=== PATIENT | male | born 1955 | race Caucasian/White ===

== ENCOUNTER → 2016-05-06 | Outpatient (CLI) | payer OTHER | LOC: FIMAGING 15:29 | PROVIDERS: ATTEND Family Medicine | DX: M99.73 Connective tissue and disc stenosis of intervertebral foramina of lumbar region (principal); M51.86 Other intervertebral disc disorders, lumbar region; Z98.1 Arthrodesis status ==

== ENCOUNTER → 2016-07-01 | Outpatient (CLI) | payer OTHER | LOC: FIMAGING 12:02 | PROVIDERS: ATTEND Physician Assistant Surgical | DX: M41.9 Scoliosis, unspecified (principal) ==

== ENCOUNTER → 2016-08-27 | Outpatient (CLI) | payer OTHER | LOC: FIMAGING 16:03 | PROVIDERS: ATTEND Family Medicine | DX: I82.401 Acute embolism and thrombosis of unspecified deep veins of right lower extremity (principal) ==

== ENCOUNTER → 2016-11-24 | Outpatient (CLI) | payer OTHER | LOC: FIMAGING 16:16 | PROVIDERS: ATTEND Family Medicine | DX: I82.411 Acute embolism and thrombosis of right femoral vein (principal) ==

== ENCOUNTER 2016-12-03 07:15 | Inpatient (IN) | payer OTHER ==
[2016-11-30 17:19] LABS: % IMMATURE GRANULYOCYTES 0.4 % (0.0-1.1); ABSOLUTE IMMATURE GRANULOCYTES 0.03 10^3/uL (0.00-0.10); ADD DIFF? NO; ADD MORPH? NO; ADD SCAN? NO; ATYPICAL LYMPHOCYTE FLAG 10 (0-99); FRAGMENT RBC FLAG 0 (0-99); HEMATOCRIT 42.3 % (40.0-51.0); HEMOGLOBIN 14.8 g/dL (13.7-17.5); LEFT SHIFT FLG 0 (0-99); LIPEMIA HEMOLYSIS FLAG 90 (0-99); MEAN CELL HEMOGLOBIN 33.9 pg (27.9-34.1); MEAN CELL VOLUME 96.8 fL (81.5-99.8); MEAN PLATELET VOLUME 9.4 fL (8.7-11.7); PLATELET CLUMPS FLAG 0 (0-99); PLATELET COUNT 184 10^3/uL (150-400); RED BLOOD CELL COUNT 4.37 10^6/uL (4.40-6.38)
--- NOTE | 2016-12-03 08:27 | PDANEPAE ---
ANE History of Present Illness 61 year old male w PMHx of ascending aortic aneurysm (s/p proximal aorta and aortic valve replacement), CAD (s/p CABG), DDD, previous TIAs presents for TLIF. ANE Past Medical History - Cardiovascular History Hx Hypertension: No Hx Arrhythmias: No Hx Chest Pain: No Hx Coronary Artery / Peripheral Vascular Disease: Yes Hx CHF / Valvular Disease: Yes Hx Palpitations: No Cardiovascular History Comment: RECENT DVT FEMORAL 07/2016. DVT/PE 2008. HYPERLIPIDEMIA - Pulmonary History Hx COPD: No Hx Asthma/Reactive Airway Disease: No Hx Recent Upper Respiratory Infection: No Hx Oxygen in Use at Home: No Hx Sleep Apnea: No Sleep Apnea Screening Result - Last Documented: Negative Pulmonary History Comment: PE 2008 - Neurologic History Hx Cerebrovascular Accident: No Hx Seizures: No Hx Dementia: No Neurologic History Comment: OCCAS TIAs. MIGRAINES RARE. FAMILY HX CVA - Endocrine History Hx Diabetes: No Hypothyroid: No Hyperthyroid: No Obesity: mild - Renal History Hx Renal Disorders: No - Liver History Hx Hepatic Disorders: No - Neurological & Psychiatric Hx Hx Neurological and Psychiatric Disorders: No - Cancer History Hx Cancer: No - Congenital Disorder History Hx Congenital Disorders: No - GI History GERD: no Hx Gastrointestinal Disorders: No - Other Health History Other Health History: ANEMIA - IRON DEFICIENCY - Chronic Pain History Chronic Pain: Yes (BACK PAIN) - Surgical History Prior Surgeries: ANEURYSM REPAIR 07/2008. AVR-07/2008. CABG-07/2008. LUMBAR FUSION. VASECTOMY. WISDOM TEETH ANE Review of Systems Review of systems is: negative Review of Systems: - Exercise capacity Exercise capacity: >=4 METS METS (RN): 5 METS ANE Patient History - Allergies Allergies/Adverse Reactions: erythromycin base [Erythromycin Base] Allergy (Verified 05/26/11 08:37) - Home Medications Home medications: home medication list seen and reviewed Home Medications: Aspirin [Aspirin 81mg (OTC)] 81 mg PO DAILY 05/26/11 [Last Taken Unknown] Ferrous Sulfate [Ferrous Sulf 325 MG (*)] 325 mg PO DAILY 11/05/16 [Last Taken Unknown] Ibuprofen [Motrin (*)] 200 mg PO DAILY PRN 11/05/16 [Last Taken Unknown] Warfarin Sodium [Coumadin 5MG (*)] 5 mg PO MWF@16 11/05/16 [Last Taken 11/27/16] RX: Enoxaparin Sodium 100 mg SQ BID 12/03/16 [Last Taken 12/02/16 22:00] Warfarin Sodium [Coumadin 5MG (*)] 10 mg PO SUTUTHSA@16 12/03/16 [Last Taken ] - NPO status NPO Status: no food or drink >8 hours - Anes Hx Anes Hx: no prior problems - Smoking Hx Smoking Status: Former smoker - Family Anes Hx Family Anes Hx: neg - N/A Family Hx Anesthesia Complications: NEG ANE Labs/Vital Signs - Labs Result Diagrams: 11/30/16 16:59 - Vital Signs Vital Signs: reviewed preoperatively; see RN documention for details Height: 182.88 cm Weight: 97.522 kg ANE Physical Exam - Airway Neck exam: FROM Mallampati Score: Class 2 Mouth exam: normal dental/mouth exam - Pulmonary Pulmonary: no respiratory distress - Cardiovascular Cardiovascular: regular rate and rhythym - ASA Status ASA Status: III ANE Anesthesia Plan Anesthesia Plan: general endotracheal anesthesia Total IV Anesthesia: No
[2016-12-03] MEDS ORDERED: BUPIVACAINE 0.25% 30 ML SDV ONE (08:29)
[2016-12-03] MEDS ORDERED: CHLORHEXIDINE GLUC HIBICLENS 118 ML BTL TP ONE (08:29)
[2016-12-03] MEDS ORDERED: THROMBIN (BOVINE) 20,000 UNIT VIAL TP ONE ×3 (08:29→12:50)
[2016-12-03] MEDS ORDERED: CITRATE DEXTROSE SOLN 500 ML BAG ONE ×3 (08:30→16:34)
[2016-12-03] MEDS ORDERED: BACITRACIN 50,000 UNITS/10 ML SYR IRR ONE ×2 (08:30→12:51)
[2016-12-03] MEDS ORDERED: ACETAMINOPHEN 500 MG TAB PO ONE (08:37)
[2016-12-03] MEDS ORDERED: GABAPENTIN 300 MG CAP PO ONE (08:37)
[2016-12-03] MEDS ORDERED: ceFAZolin 2 GM/DEXTROSE 100 ML IV ONE (08:37)
[2016-12-03] MEDS ORDERED: morphINE PF 5 MG/10 ML INJ IT ONE (08:37)
[2016-12-03] MEDS ORDERED: fentaNYL 100 MCG/2 ML INJ IT ONE (08:37)
[2016-12-03] MEDS ORDERED: TRANEXAMIC ACID 1,000 MG in NS 100 ML IV ONE (08:37)
[2016-12-03 09:13] LABS: INR 1.17 (0.83-1.16); PROTIME(PATIENT) 14.9 SEC (12.0-15.0)
[2016-12-03] MEDS ORDERED: LR 1,000 ML IV ONE (09:17)
[2016-12-03] MEDS ORDERED: MIDAZOLAM 2 MG/2 ML VIAL IVP ONE (09:46)
[2016-12-03] MEDS ORDERED: PROPOFOL/EMULSION 500 MG/50 ML BOTTLE IV ONE ×5 (09:58→17:34)
[2016-12-03] MEDS ORDERED: REMIFENTANIL HCL 1 MG VIAL ONE ×5 (09:58→17:34)
[2016-12-03] MEDS ORDERED: fentaNYL 100 MCG/2 ML INJ ONE ×2 (10:03→14:00)
[2016-12-03] MEDS ORDERED: PROPOFOL 200 MG/20 ML VIAL ONE (10:03)
[2016-12-03] MEDS ORDERED: ROCURONIUM 50 MG/5 ML VIAL ONE (10:04)
[2016-12-03] MEDS ORDERED: LIDOCAINE 2% 5 ML SDV ONE (10:04)
[2016-12-03] MEDS ORDERED: DEXAMETHASONE 4 MG/ML VIAL ONE (10:50)
[2016-12-03] MEDS ORDERED: PHENYLEPHRINE HCL 100 MCG/ML SYR ONE ×2 (10:51→12:59)
[2016-12-03] MEDS ORDERED: HYDROCODONE/APAP 5/325 TAB PO PRN (13:04)
[2016-12-03] MEDS ORDERED: fentaNYL 100 MCG/2 ML INJ IVP PRN (13:04)
[2016-12-03] MEDS ORDERED: ONDANSETRON 4 MG/2 ML VIAL IVP PRN ×3 (13:04→19:05)
[2016-12-03] MEDS ORDERED: NALOXONE HCL 0.4 MG/ML INJ IVP PRN ×3 (13:04→19:05)
[2016-12-03] MEDS ORDERED: HYDROmorphONE/DILAUDID 1 MG/ML INJ IVP PRN ×2 (13:04→19:05)
[2016-12-03] MEDS ORDERED: LR 500 ML IV PRN ×2 (13:04→19:05)
[2016-12-03] MEDS ORDERED: THROMBIN (BOVINE) 5,000 UNIT VIAL TP ONE ×3 (15:16→16:49)
[2016-12-03 15:30] LABS: HEMATOCRIT 35.8 % (40.0-51.0); HEMOGLOBIN 12.7 g/dL (13.7-17.5)
[2016-12-03] MEDS ORDERED: ALBUMIN 5% 250 ML BOTTLE IV ONE ×4 (15:31→16:39)
[2016-12-03] MEDS ORDERED: PHENYLEPHRINE 10 MG/ML SDV ONE (15:38)
[2016-12-03 16:19] LABS: INR 1.46 (0.83-1.16); PROTIME(PATIENT) 17.7 SEC (12.0-15.0)
[2016-12-03 16:20] LABS: APTT 34.9 SEC (23.0-38.0)
[2016-12-03 17:52] LABS: K TIME 1.8 minutes (1-3); MAXIMUM AMPLITUDE 64.2 mm (50-70); R TIME 5.2 minutes (5-10); TEG CONTAINER Citrated Kaolin
[2016-12-03] MEDS ORDERED: ONDANSETRON DISINTEGRATING 4 MG TAB PO PRN (18:17)
[2016-12-03] MEDS ORDERED: MAGNESIUM HYDROXIDE 30 ML UDCUP PO PRN (18:17)
[2016-12-03] MEDS ORDERED: morphINE PCA 30 MG/30 ML PCA IV PRN (18:17)
[2016-12-03] MEDS ORDERED: diphenhydrAMINE 25 MG CAP PO PRN (18:17)
[2016-12-03] MEDS ORDERED: BISACODYL 10 MG SUPP PR PRN (18:17)
--- NOTE | 2016-12-03 18:29 | SOAPPROG ---
SOAP Progress Note Assessment/Plan: Assessment: 61 yo M L1-S1 fusion with L2/3, L4/5, L5/S1 TLIF and L3 PSO Plan: stable to ICU follow hg/hct DEISY x 1 LSO Brace in am DVT in right leg so not SCD on right leg, start lovenox in am and will have IR place IVC filter 12/04 PT/OT please call with neuro changes 12/03/16 18:28 Subjective: + back pain, no leg pain Objective: Vital Signs Temp Pulse Resp BP Pulse Ox 36.4 C 58 L 16 130/84 H 94 12/03/16 09:19 12/03/16 09:19 12/03/16 09:19 12/03/16 09:19 12/03/16 09:19 Laboratory Results 12/03/16 15:15 PT 17.7 SEC (12.0-15.0) H 12/03/16 15:50 INR 1.46 (0.83-1.16) H 12/03/16 15:50 somnolent PERRL, no facial droop ANILA x 4 + light touch ICD10 Worksheet Patient Problems: Problems Problem Status Onset Fusion of spine of lumbar region Acute - ICD10 Problem Qualifiers (1) Fusion of spine of lumbar region
[2016-12-03] MEDS: fentaNYL 100 MCG/2 ML INJ IVP PRN ×2 (19:16→19:29)
--- NOTE | 2016-12-03 19:29 | POSTANESTH ---
Post Anesthetic Evaluation Cardiovascular Status: Normal, Stable, Similar to Pre-Op Cond Respiratory Status: Normal, Stable, Similar to Pre-op Cond. Level of Consciousness/Mental Status: Mildly Sleepy, Arousable Pain Control: Adequate, Prn Tx Ordered Nausea/Vomiting Control: Adequate, Prn Tx Ordered Complications Possibly Related to Anesthesia: None Noted (Patient to ICU given coagulopathy and high volume resuscitation. However, patient hemodynamically stable, off all pressors. Patient sleepy but able to appropriately interact. Moves all extremities and follows commands.)
[2016-12-03] MEDS: METHOCARBAMOL 750 MG TAB PO PRN (20:01)
--- NOTE | 2016-12-03 20:27 | GOP ---
[f rep st] OPERATIVE REPORT DATE OF OPERATION: 12/03/2016 SURGEON: Josr Collins MD NEUROSURGEON: Josr Collins MD. INDUSTRIAL CHEMIST: HANSEL Trujillo ANESTHESIA: General endotracheal. 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 POSTOPERATIVE DIAGNOSIS: Iatrogenic lumbar kyphotic deformity secondary to prior lumbar laminectomy and fusion in the kyphosed position; intractable back pain; failed conservative care. PROCEDURE PERFORMED: Removal of posterior nonsegmental (facet screws) fixation. Left-sided L2-3, L3-4, L4-5, and L5-S1 lateral transpedicular decompression with L3 laminectomy; L1 through S1 posterior segmental (pedicle screw and axial device) fixation and posterolateral fusion with local autograft and bone morphogenic protein; L2-3, L4-5, and L5-S1 posterior/transforaminal lumbar interbody fusion with 2 structural Polyether-etherketone interbody spacers, local autograft and bone morphogenic protein; L4 pedicle subtraction osteotomy for reduction of kyphotic deformity; use of intraoperative microscopy , fluoroscopy, and computer volumetric stereotactic navigation with intraoperative neurophysiologic testing; injection of intrathecal narcotic analgesics and subcutaneous and intramuscular local anesthesia for postoperative pain control. ESTIMATED BLOOD LOSS: 4500 cc. INDICATIONS: The patient is a 61-year-old male with intractable back pain secondary to lumbar kyphotic deformity, status post prior lumbar fusion many years ago. He has failed extensive conservative care and presents for surgical decompression and stabilization in a more lordotic position with a pedicle subtraction osteotomy as well. DESCRIPTION OF PROCEDURE: After informed consent was obtained, the patient was taken to the operating room and placed in a prone position on the Ned table. The lumbosacral area was prepped and draped in a sterile fashion. After fluoroscopic localization of the correct levels, the subcutaneous and intramuscular tissues were infiltrated with local anesthesia. A midline linear incision was then created over the L2 to S1 spinous processes. This was carried down in the fascial layer, which was incised using monopolar electrocautery, and carried in a subperiosteal plane along the spinous processes and out lamina bilaterally. Intraoperative fluoroscopy was then utilized to verify the correct levels. Following this, the dissection was carried out over the lamina and facet joints. The prior instrumentation was identified at L3-4 and carefully removed. The fusion was inspected and explored. Following this, it was determined that the L4 level was the best level for the pedicle subtraction osteotomy and reduction of his deformity and because of this, it was necessary to extend the incision up to L1 with the dissection in order to get 2 points of fixation above the kyphosis reduction/ osteotomy. After carefully exposing up to L1, the microscope was brought in and left-sided far lateral transpedicular decompressions were performed at the L2-3, L4-5, and L5-S1 levels. An L3 complete laminectomy was performed in anticipation of reducing the deformity and recreating lordosis. Following this , the BRAIN neuronavigational system was brought in and using computer volumetric stereotactic navigation, pedicle screws were placed at L1, L2, L3, L4 , L5, and S1 bilaterally. Each individual screw was tested neurophysiologically with monopolar electrostimulation and interpretation of the potentials by the surgeon. Biplanar fluoroscopy was utilized to verify good position of the screws. Serial rods were then placed first at L5-S1, then at L4-5, then at L2-3, during which time distraction was created across the interspaces and complete diskectomies were performed with preparation of endplates and placement of 2 structural PEEK interbody spacers with local autograft and bone morphogenic protein for L3, L4-5 and L5-S1 posterior/ transforaminal lumbar interbody fusions. The small rods were taken out and the L3 pedicle screw was removed and rods were placed across from L2 to L4 and the distance between the screws was measured. The vertebral body was then drilled down in a wedge-shaped fashion, all the way down to the anterior tip of the cortex, and the spine was completely realigned with a reduction and inner screw distance posteriorly by about 30 mm on each side for an excellent recreation of his lordosis. Long rods were then placed and secured to maintain this position and an extensive decortication was performed from L1 through S1 posterolaterally and the local autograft from the facetectomies and bone graft was placed posterolaterally along with bone morphogenic protein for an L1 through S1 posterolateral fusion. 200 mcg of Duramorph along with 50 mcg of fentanyl were then injected intrathecally. The subcutaneous and intramuscular tissues were re-infiltrated with local anesthesia. A drain was placed and the wound was closed in a layered fashion using interrupted Vicryl sutures followed by Steri-Strips on the skin. COMPLICATIONS: None. DISPOSITION: The patient is currently in the process of being repositioned for extubation. /[id number]/MODL and [id number]/MODL [facility]
[2016-12-03] MEDS: SENNOSIDES/DOCUSATE SODIUM TAB PO SCH (20:43)
[2016-12-03] MEDS: FAMOTIDINE 20 MG TAB PO SCH (20:43)
[2016-12-03] MEDS: morphINE SR 15 MG TAB PO SCH (20:44)
[2016-12-03] MEDS: ceFAZolin 2 GM/DEXTROSE 100 ML IV SCH (20:44)
[2016-12-03] MEDS: NS W/ 20 KCl/L 1,000 ML IV SCH (20:44)
[2016-12-03] MEDS: POLYETHYLENE GLYCOL 3350 17 GM PKT PO SCH (20:45)
[2016-12-03] MEDS ORDERED: GABAPENTIN 300 MG CAP PO SCH (22:00)
[2016-12-03] MEDS: ACETAMINOPHEN 500 MG TAB PO SCH (22:18)
[2016-12-04] MEDS: ceFAZolin 2 GM/DEXTROSE 100 ML IV SCH (03:06)
[2016-12-04] MEDS: NS W/ 20 KCl/L 1,000 ML IV SCH (04:45)
[2016-12-04] MEDS: ACETAMINOPHEN 500 MG TAB PO SCH ×3 (05:09→21:07)
[2016-12-04 05:43] LABS: % IMMATURE GRANULYOCYTES 0.5 % (0.0-1.1); ABSOLUTE IMMATURE GRANULOCYTES 0.05 10^3/uL (0.00-0.10); ADD DIFF? NO; ADD MORPH? NO; ADD SCAN? NO; ATYPICAL LYMPHOCYTE FLAG 0 (0-99); FRAGMENT RBC FLAG 0 (0-99); HEMATOCRIT 27.4 % (40.0-51.0); HEMOGLOBIN 9.4 g/dL (13.7-17.5); LEFT SHIFT FLG 0 (0-99); LIPEMIA HEMOLYSIS FLAG 90 (0-99); MEAN CELL HEMOGLOBIN 33.9 pg (27.9-34.1); MEAN CELL HEMOGLOBIN CONCENTR. 34.3 g/dL (32.4-36.7); MEAN CELL VOLUME 98.9 fL (81.5-99.8); MEAN PLATELET VOLUME 9.6 fL (8.7-11.7); PLATELET CLUMPS FLAG 0 (0-99); PLATELET COUNT 127 10^3/uL (150-400); RED BLOOD CELL COUNT 2.77 10^6/uL (4.40-6.38); RED CELL DISTRIBUTION WIDTH 12.9 % (11.5-15.2)
[2016-12-04 05:55] LABS: ANION GAP 6 mEq/L (8-16); CALCIUM 8.3 mg/dL (8.5-10.4); CARBON DIOXIDE 22 mEq/l (22-31); CHLORIDE 111 mEq/L (97-110); CREATININE 0.8 mg/dL (0.7-1.3); GLOMERULAR FILTRATION RATE > 60; GLUCOSE 102 mg/dL (70-100); POTASSIUM 4.2 mEq/L (3.5-5.2); SODIUM 139 mEq/L (134-144)
--- NOTE | 2016-12-04 07:38 | SOAPPROG ---
SOAP Progress Note Assessment/Plan: Assessment: 61 yo M POD #1 L1-S1 fusion with L2/3, L4/5, L5/S1 TLIF and L3 PSO Plan: neuro: stable and doing well overall :) will have IR place IVC filter this am and start lovenox after follow hg/hct, anemia from high EBL (4500 ml) x-rays today DEISY x 1 LSO Brace to be fit today DVT in right leg so not SCD on right leg, start lovenox in am and will have IR place IVC filter 12/04 PT/OT please call with neuro changes discussed with DR Rodriguez 12/03/16 18:28 12/04/16 07:36 Subjective: continued surgical back pain, no leg pain or paresthesias, no headaches, no N/ V. Objective: Vital Signs Temp Pulse Resp BP Pulse Ox 36.2 C 61 10 L 118/57 L 100 12/04/16 05:15 12/04/16 06:00 12/04/16 06:00 12/04/16 06:00 12/04/16 06:00 Laboratory Results 12/04/16 05:10 12/04/16 05:10 12/03/16 12/04/16 12/05/16 05:59 05:59 05:59 Intake Total 1893 Output Total 1560 80 Balance 333 -80 PT 17.7 SEC (12.0-15.0) H 12/03/16 15:50 INR 1.46 (0.83-1.16) H 12/03/16 15:50 AAOx4, +FC PERRL, no facial droop 5/5 + light touch C/D/I ICD10 Worksheet Patient Problems: Problems Problem Status Onset Fusion of spine of lumbar region Acute - ICD10 Problem Qualifiers (1) Fusion of spine of lumbar region
[2016-12-04 08:27] LABS: INR 1.27 (0.83-1.16); PROTIME(PATIENT) 15.9 SEC (12.0-15.0)
[2016-12-04 08:28] LABS: APTT 26.3 SEC (23.0-38.0)
[2016-12-04] MEDS ORDERED: fentaNYL 100 MCG/2 ML INJ ONE (09:08)
[2016-12-04] MEDS: morphINE SR 15 MG TAB PO SCH ×2 (09:39→21:06)
[2016-12-04] MEDS: METHOCARBAMOL 750 MG TAB PO PRN ×3 (09:40→23:15)
[2016-12-04] MEDS ORDERED: IOPAMIDOL (ISOVUE-300) 100 ML BTL ONE (11:04)
--- NOTE | 2016-12-04 11:11 | ASMTCMCOM ---
CM Note CM Note Notes: Chart reviewed. Pt s/p spinal surgery. PT and OT evals pending. Brace to be delivered about noon anticipate evals to start after that. Needs TBD at this time. CM to follow, Date Signed: 12/04/2016 11:11 AM Electronically Signed By:Rena Wyatt RN
--- NOTE | 2016-12-04 11:24 | POSTOPPROG ---
Post Op Note Date of Operation: 12/04/16 Surgeon: Jackson Craig Pre-op Diagnosis: DVT Post-op Diagnosis: DVT. Post-op spinal fusion. Indication: Internal bleeding. Procedure: IVC filter Findings: Patent IVC. Retrievable IVC Filter in good position. Inf/Abcess present in the surg proc area at time of surgery?: No EBL: Minimal
[2016-12-04] MEDS: FAMOTIDINE 20 MG TAB PO SCH ×2 (13:24→21:06)
[2016-12-04] MEDS: FERROUS SULFATE 325 MG TAB PO SCH (13:25)
[2016-12-04] MEDS: ENOXAPARIN 100 MG/ML SYR SC SCH ×2 (13:25→21:06)
[2016-12-04] MEDS: POLYETHYLENE GLYCOL 3350 17 GM PKT PO SCH ×3 (13:25→21:08)
[2016-12-04] MEDS: SENNOSIDES/DOCUSATE SODIUM TAB PO SCH ×2 (13:25→21:07)
[2016-12-04] MEDS: oxyCODONE IR 5 MG TAB PO PRN ×4 (14:01→23:57)
[2016-12-05 03:15] LABS: HEMATOCRIT 23.3 % (40.0-51.0); HEMOGLOBIN 8.2 g/dL (13.7-17.5); MEAN CELL HEMOGLOBIN 34.6 pg (27.9-34.1); MEAN CELL HEMOGLOBIN CONCENTR. 35.2 g/dL (32.4-36.7); MEAN CELL VOLUME 98.3 fL (81.5-99.8); RED BLOOD CELL COUNT 2.37 10^6/uL (4.40-6.38); RED CELL DISTRIBUTION WIDTH 13.2 % (11.5-15.2)
[2016-12-05 03:40] LABS: ANION GAP 6 mEq/L (8-16); CALCIUM 7.7 mg/dL (8.5-10.4); CARBON DIOXIDE 22 mEq/l (22-31); CHLORIDE 110 mEq/L (97-110); CREATININE 0.9 mg/dL (0.7-1.3); GLOMERULAR FILTRATION RATE > 60; GLUCOSE 95 mg/dL (70-100); POTASSIUM 3.7 mEq/L (3.5-5.2); SODIUM 138 mEq/L (134-144)
[2016-12-05] MEDS: METHOCARBAMOL 750 MG TAB PO PRN ×4 (05:49→23:34)
[2016-12-05] MEDS: oxyCODONE IR 5 MG TAB PO PRN ×3 (05:49→15:53)
[2016-12-05] MEDS: ACETAMINOPHEN 500 MG TAB PO SCH ×4 (07:01→21:07)
[2016-12-05] MEDS: FAMOTIDINE 20 MG TAB PO SCH ×2 (07:59→21:07)
[2016-12-05] MEDS: ENOXAPARIN 100 MG/ML SYR SC SCH ×2 (07:59→21:08)
[2016-12-05] MEDS: morphINE SR 15 MG TAB PO SCH ×2 (07:59→21:07)
[2016-12-05] MEDS: FERROUS SULFATE 325 MG TAB PO SCH (08:00)
[2016-12-05] MEDS: POLYETHYLENE GLYCOL 3350 17 GM PKT PO SCH ×3 (08:00→21:08)
[2016-12-05] MEDS: SENNOSIDES/DOCUSATE SODIUM TAB PO SCH ×2 (08:00→21:08)
--- NOTE | 2016-12-05 08:01 | SOAPPROG ---
SOAP Progress Note Assessment/Plan: Assessment: 61 yo male s/p L1-S1 fusion with L3 Pedicle subtraction osteotomy. History of LE DVT. IVC filter placed 12/04 Neuro stable ongoing pain control requirements required straight cath overnight. Plan: CPM in Stepdown PT/OT as tolerated LSO when out of bed Discussed with Dr. Lazaro 12/05/16 07:57 12/05/16 08:01 Subjective: out of bed in chair. Feeling OK. Denies numbness or tingling. He has some bilateral groin pain today. Objective: Vital Signs Temp Pulse Resp BP Pulse Ox 37.1 C 72 11 L 119/52 L 98 12/04/16 23:52 12/05/16 06:00 12/05/16 06:00 12/05/16 06:00 12/05/16 06:00 Laboratory Results 12/05/16 03:05 12/05/16 03:05 12/04/16 12/05/16 12/06/16 05:59 05:59 05:59 Intake Total 1893 3587 Output Total 1560 2170 Balance 333 1417 PT 15.9 SEC (12.0-15.0) H 12/04/16 08:10 INR 1.27 (0.83-1.16) H 12/04/16 08:10 DEISY: 445 ml Neuro: oriented x 4. Follows commands, sens +LT dressing: CDI ICD10 Worksheet Patient Problems: Problems Problem Status Onset Fusion of spine of lumbar region Acute
--- NOTE | 2016-12-05 12:25 | GCON ---
[f rep st] CONSULTATION MANAGER CONSUMER CONSULTATION HISTORY OF PRESENT ILLNESS: The patient examined postoperatively. The patient is a 61-year-old, whi te male with a past medical history of chronic back pain and pulmonary embolus examined postoperative ly after receiving L1-S1 fusion with a L3 pedicle subtraction osteotomy. He was also given an IVC fi lter. The patient is currently resting comfortably. The patient states the pain is well controlled. There is no chest pain, pleuritic-type chest pain, or angina equivalent. No fever or night sweats. Currently, he is resting comfortably. PAST MEDICAL HISTORY: Significant for DVT and PE. ALLERGIES: Erythromycin. SOCIAL HISTORY: No history of tobacco use. No history of alcohol use. Work history, he was an [employer]. PHYSICAL EXAM: VITAL SIGNS: Blood pressure is 119/59, pulse 76, respiration 18, temperature 36.7, o xygen saturation 93% on room air. GENERAL: He is a well-developed, well-nourished, 61-year-old, whi te male who is resting comfortably in no acute distress. HEENT: Eyes are PERRLA, EOMI. Throat show s no erythema or tonsillar hypertrophy. NECK: Supple. There is no cervical adenopathy. HEART: Re gular rate and rhythm with a 2/6 systolic murmur left sternal border without radiation. LUNGS: Dimi nished breath sounds, but no wheeze. ABDOMEN: Soft, nontender. Bowel sounds are present in all 4 q uadrants. EXTREMITIES: There is no clubbing, cyanosis, edema. LABORATORIES: White count 9.6, hemoglobin 8.2, hematocrit 23, platelet count is 106, sodium 138, pot assium 3.7, chloride 110, CO2 is 22, BUN 16, creatinine 0.9, glucose is 95. IMPRESSION: 1. Chronic back pain. 2. Status post L1-S1 fusion with L3 pedicle subtraction osteotomy. 3. Status post inferior vena cava filter. 4. History of pulmonary embolus and deep vein thrombosis. RECOMMENDATIONS: 1. Continue adequate pain control. 2. DVT and PE prophylaxis. 3. Anticoagulation when appropriate. 4. Stress ulcer prophylaxis. 5. PT and OT. /[id number]/MODL
[2016-12-05] MEDS: LACTULOSE 20 GM/30 ML UDCUP PO PRN (13:55)
--- NOTE | 2016-12-05 17:59 | ASMTCMCOM ---
CM Note CM Note Notes: Reviewed chart re: d/c poc, pt's progress. Per ICU rounds, pt w/ extensive blood loss during surgery; IVC filter placed Wednesday for DVT right leg. PT/OT evals complete, both rec home w/ no needs. Brace delivered. Anticipate pt will likely d/c home w/ family support when medically stable. CM will cont to follow. Date Signed: 12/05/2016 05:58 PM Electronically Signed By:Maryann Bond RN
[2016-12-06] MEDS: NS W/ 20 KCl/L 1,000 ML IV SCH ×2 (00:18→10:43)
[2016-12-06] MEDS: ACETAMINOPHEN 500 MG TAB PO SCH ×3 (06:33→22:09)
[2016-12-06] MEDS: METHOCARBAMOL 750 MG TAB PO PRN ×2 (06:33→15:21)
[2016-12-06] MEDS: SENNOSIDES/DOCUSATE SODIUM TAB PO SCH ×2 (07:35→22:09)
[2016-12-06] MEDS: POLYETHYLENE GLYCOL 3350 17 GM PKT PO SCH ×3 (07:35→20:49)
[2016-12-06] MEDS: FERROUS SULFATE 325 MG TAB PO SCH (07:40)
[2016-12-06] MEDS: morphINE SR 15 MG TAB PO SCH ×2 (07:40→22:08)
[2016-12-06] MEDS: FAMOTIDINE 20 MG TAB PO SCH ×2 (07:40→22:08)
[2016-12-06] MEDS: ENOXAPARIN 100 MG/ML SYR SC SCH ×2 (07:41→22:08)
--- NOTE | 2016-12-06 09:30 | PDINTPN ---
Shank Archer Progress Note Assessment/Plan: Assessment: * Status post L1-S1 fusion with L3 pedicle subtraction osteotomy * Pain-well controlled * History of DVT and PE * Status post IVC filter Plan: Continue present care Patient will require full anticoagulation soon Consider removal of IVC filter at soonest Subjective: Resting comfortably. Pain is tolerable. Objective: Vital Signs Temp Pulse Resp BP Pulse Ox 36.9 C 74 14 115/49 L 93 12/06/16 07:32 12/06/16 07:32 12/06/16 07:32 12/06/16 07:32 12/06/16 07:32 Laboratory Results 12/05/16 03:05 12/05/16 03:05 12/05/16 12/06/16 12/07/16 05:59 05:59 05:59 Intake Total 3587 2405 Output Total 2170 1145 Balance 1417 1260 PT 15.9 SEC (12.0-15.0) H 12/04/16 08:10 INR 1.27 (0.83-1.16) H 12/04/16 08:10 Physical Exam - Physical Exam General Appearance: WD/WN, alert EENT: PERRL/EOMI, normal ENT inspection Neck: non-tender, full range of motion, supple, normal inspection Respiratory: chest non-tender, lungs clear, normal breath sounds Cardiac/Chest: normal peripheral pulses, regular rate, rhythm, systolic murmur Abdomen: normal bowel sounds, non-tender, soft Male Genitalia: deferred Rectal: deferred Skin: normal color, warm/dry Extremities: normal range of motion Neuro/Psych: alert ICD10 Worksheet Patient Problems: Problems Problem Status Onset Fusion of spine of lumbar region Acute
[2016-12-06] MEDS: TAMSULOSIN HCL 0.4 MG CAP PO SCH (10:40)
[2016-12-06] MEDS: oxyCODONE IR 5 MG TAB PO PRN ×2 (10:40→15:30)
[2016-12-06 23:18] LABS: % IMMATURE GRANULYOCYTES 0.6 % (0.0-1.1); ABSOLUTE IMMATURE GRANULOCYTES 0.05 10^3/uL (0.00-0.10); ADD DIFF? NO; ADD MORPH? NO; ADD SCAN? NO; ATYPICAL LYMPHOCYTE FLAG 0 (0-99); FRAGMENT RBC FLAG 0 (0-99); HEMATOCRIT 20.8 % (40.0-51.0); HEMOGLOBIN 7.3 g/dL (13.7-17.5); LEFT SHIFT FLG 0 (0-99); LIPEMIA HEMOLYSIS FLAG 90 (0-99); MEAN CELL HEMOGLOBIN 34.6 pg (27.9-34.1); MEAN CELL HEMOGLOBIN CONCENTR. 35.1 g/dL (32.4-36.7); MEAN CELL VOLUME 98.6 fL (81.5-99.8); MEAN PLATELET VOLUME 9.6 fL (8.7-11.7); PLATELET CLUMPS FLAG 0 (0-99); PLATELET COUNT 125 10^3/uL (150-400); RED BLOOD CELL COUNT 2.11 10^6/uL (4.40-6.38); RED CELL DISTRIBUTION WIDTH 13.4 % (11.5-15.2)
[2016-12-06 23:42] LABS: ANION GAP 5 mEq/L (8-16); CALCIUM 8.2 mg/dL (8.5-10.4); CARBON DIOXIDE 25 mEq/l (22-31); CHLORIDE 103 mEq/L (97-110); CREATININE 0.8 mg/dL (0.7-1.3); GLOMERULAR FILTRATION RATE > 60; GLUCOSE 100 mg/dL (70-100); POTASSIUM 3.9 mEq/L (3.5-5.2); SODIUM 133 mEq/L (134-144)
[2016-12-06 23:59] LABS: COLOR AMBER; LEUKOCYTE ESTERASE,URINE NEGATIVE (NEGATIVE); NITRITE,URINE NEGATIVE (NEGATIVE)
[2016-12-07] MEDS: METHOCARBAMOL 750 MG TAB PO PRN ×4 (00:02→17:55)
[2016-12-07 00:04] LABS: MUCUS 3+ /lpf (NONE-1+)
[2016-12-07] MEDS: NS W/ 20 KCl/L 1,000 ML IV SCH (04:13)
[2016-12-07] MEDS: ACETAMINOPHEN 500 MG TAB PO SCH ×3 (05:34→20:30)
--- NOTE | 2016-12-07 08:03 | SOAPPROG ---
SOAP Progress Note Assessment/Plan: Assessment: 61 yo M POD #4 L1-S1 fusion with L2/3, L4/5, L5/S1 TLIF and L3 PSO Plan: neuro: stable and doing well overall :) sp IVC filter placeement, dvt in right calf before surgery, on lovenox 100mg sq bid follow hg/hct, anemia from high EBL (4500 ml) x-rays look great DEISY x 1 LSO Brace when out of bed PT/OT dc strategic planner to look at rehab options please call with neuro changes discussed with DR Rodriguez 12/03/16 18:28 12/04/16 07:36 12/07/16 08:01 Subjective: continued back pain, no leg pain, no weakness. Objective: Vital Signs Temp Pulse Resp BP Pulse Ox 36.6 C 73 14 127/57 H 99 12/07/16 07:53 12/07/16 07:53 12/07/16 04:02 12/07/16 07:53 12/07/16 07:53 Laboratory Results 12/06/16 02:55 12/06/16 02:55 12/06/16 12/07/16 12/08/16 05:59 05:59 05:59 Intake Total 2405 2614 Output Total 1145 900 Balance 1260 1714 PT 15.9 SEC (12.0-15.0) H 12/04/16 08:10 INR 1.27 (0.83-1.16) H 12/04/16 08:10 AAOx4, +FC PERRL, EOMI, no facial droop 5/5 + light touch C/D/I ICD10 Worksheet Patient Problems: Problems Problem Status Onset Fusion of spine of lumbar region Acute - ICD10 Problem Qualifiers (1) Fusion of spine of lumbar region
[2016-12-07] MEDS: TAMSULOSIN HCL 0.4 MG CAP PO SCH (10:43)
[2016-12-07] MEDS: FAMOTIDINE 20 MG TAB PO SCH ×2 (10:43→20:30)
[2016-12-07] MEDS: FERROUS SULFATE 325 MG TAB PO SCH (10:44)
[2016-12-07] MEDS: POLYETHYLENE GLYCOL 3350 17 GM PKT PO SCH ×3 (10:44→20:30)
[2016-12-07] MEDS: ENOXAPARIN 100 MG/ML SYR SC SCH ×2 (10:44→20:30)
[2016-12-07] MEDS: SENNOSIDES/DOCUSATE SODIUM TAB PO SCH ×2 (14:00→20:30)
[2016-12-07] MEDS: morphINE SR 15 MG TAB PO SCH ×2 (14:00→20:30)
[2016-12-07] MEDS: oxyCODONE IR 5 MG TAB PO PRN (22:38)
[2016-12-08] MEDS: NS W/ 20 KCl/L 1,000 ML IV SCH (02:39)
[2016-12-08] MEDS: METHOCARBAMOL 750 MG TAB PO PRN ×4 (02:44→20:22)
[2016-12-08] MEDS: oxyCODONE IR 5 MG TAB PO PRN ×4 (02:44→23:20)
[2016-12-08] MEDS: ACETAMINOPHEN 500 MG TAB PO SCH ×3 (05:43→20:22)
[2016-12-08] MEDS ORDERED: DIAZEPAM 5 MG TAB PO PRN (07:55)
--- NOTE | 2016-12-08 07:55 | SOAPPROG ---
SOAP Progress Note Assessment/Plan: Assessment: 61 yo M POD #5 L1-S1 fusion with L2/3, L4/5, L5/S1 TLIF and L3 PSO Plan: neuro: stable and doing well overall :) sp IVC filter placement, dvt in right calf before surgery, on lovenox 100mg sq bid, KUB 12/07 shows that IVC filter has tilted since placement, will have IR remove and replace today follow hg/hct, anemia from high EBL (4500 ml), transfuse if hg/hct drop further x-rays look great DEISY x 1 LSO Brace when out of bed PT/OT likely home with [facility] in the next few days please call with neuro changes discussed with DR Rodriguez 12/03/16 18:28 12/04/16 07:36 12/07/16 08:01 12/08/16 07:53 Subjective: continued back pain, no leg pain, right leg chronically swollen Objective: Vital Signs Temp Pulse Resp BP Pulse Ox 36.6 C 91 14 124/73 H 96 12/08/16 00:00 12/08/16 00:00 12/08/16 00:00 12/08/16 00:00 12/08/16 00:00 Laboratory Results 12/06/16 02:55 12/06/16 02:55 12/07/16 12/08/16 12/09/16 05:59 05:59 05:59 Intake Total 2614 3760 Output Total 900 1600 Balance 1714 2160 PT 15.9 SEC (12.0-15.0) H 12/04/16 08:10 INR 1.27 (0.83-1.16) H 12/04/16 08:10 AAOX4, +FC PERRL, EOMI, no facial droop 5/5 + light touch C/D/I right calf chronically swollen. ICD10 Worksheet Patient Problems: Problems Problem Status Onset Fusion of spine of lumbar region Acute - ICD10 Problem Qualifiers (1) Fusion of spine of lumbar region
[2016-12-08] MEDS: SENNOSIDES/DOCUSATE SODIUM TAB PO SCH ×2 (09:07→20:21)
[2016-12-08] MEDS: TAMSULOSIN HCL 0.4 MG CAP PO SCH (09:07)
[2016-12-08] MEDS: FERROUS SULFATE 325 MG TAB PO SCH (09:07)
[2016-12-08] MEDS: morphINE SR 15 MG TAB PO SCH ×2 (09:08→20:22)
[2016-12-08] MEDS: FAMOTIDINE 20 MG TAB PO SCH ×2 (09:08→20:22)
[2016-12-08] MEDS: POLYETHYLENE GLYCOL 3350 17 GM PKT PO SCH ×3 (09:10→21:01)
[2016-12-08] MEDS ORDERED: fentaNYL 100 MCG/2 ML INJ ONE (11:47)
[2016-12-08] MEDS ORDERED: FLUMAZENIL 0.5 MG/5 ML MDV IVP ONE (11:47)
[2016-12-08] MEDS ORDERED: MIDAZOLAM 2 MG/2 ML VIAL ONE (11:48)
[2016-12-08] MEDS ORDERED: IOPAMIDOL (ISOVUE-300) 100 ML BTL ONE ×2 (12:26→13:25)
[2016-12-08 15:18] LABS: % IMMATURE GRANULYOCYTES 1.6 % (0.0-1.1); ABSOLUTE IMMATURE GRANULOCYTES 0.11 10^3/uL (0.00-0.10); ABSOLUTE NRBC COUNT 0.05 10^3/uL (0-0.01); ADD DIFF? NO; ADD MORPH? NO; ADD SCAN? NO; ATYPICAL LYMPHOCYTE FLAG 10 (0-99); FRAGMENT RBC FLAG 0 (0-99); HEMATOCRIT 22.1 % (40.0-51.0); HEMOGLOBIN 7.7 g/dL (13.7-17.5); LEFT SHIFT FLG 10 (0-99); LIPEMIA HEMOLYSIS FLAG 90 (0-99); MEAN CELL HEMOGLOBIN 34.8 pg (27.9-34.1); MEAN CELL HEMOGLOBIN CONCENTR. 34.8 g/dL (32.4-36.7); MEAN PLATELET VOLUME 9.4 fL (8.7-11.7); NRBC-AUTO% 0.7 % (0.0-0.2); PLATELET CLUMPS FLAG 0 (0-99); PLATELET COUNT 201 10^3/uL (150-400); RED BLOOD CELL COUNT 2.21 10^6/uL (4.40-6.38); RED CELL DISTRIBUTION WIDTH 13.4 % (11.5-15.2)
[2016-12-08] MEDS: ENOXAPARIN 100 MG/ML SYR SC SCH (20:23)
[2016-12-09] MEDS: METHOCARBAMOL 750 MG TAB PO PRN ×4 (02:18→21:33)
[2016-12-09] MEDS: ACETAMINOPHEN 500 MG TAB PO SCH ×3 (05:16→21:34)
[2016-12-09] MEDS: oxyCODONE IR 5 MG TAB PO PRN ×3 (05:16→23:54)
--- NOTE | 2016-12-09 07:59 | SOAPPROG ---
SOAP Progress Note Assessment/Plan: Assessment: Assessment: 61 yo M POD #6 L1-S1 fusion with L2/3, L4/5, L5/S1 TLIF and L3 PSO Plan: neuro: stable and doing well overall sp IVC filter removal and replacement 12/08 dvt in right calf before surgery, on lovenox 100mg sq bid follow hg/hct, anemia from high EBL (4500 ml), transfuse if hg/hct drop further x-rays look great DEISY x 1, minimally productive LSO Brace when out of bed PT/OT likely home with [facility] in the next few days please call with neuro changes discussed with DR Rodriguez Subjective: in bed, pain controlled overall. He denies new weakness or tingling. Objective: Vital Signs Temp Pulse Resp BP Pulse Ox 36.6 C 70 20 142/72 H 100 12/09/16 05:36 12/09/16 05:36 12/09/16 05:36 12/09/16 05:36 12/09/16 05:36 Laboratory Results 12/08/16 15:00 12/06/16 02:55 12/08/16 12/09/16 12/10/16 05:59 05:59 05:59 Intake Total 3760 1751 Output Total 1600 1676 Balance 2160 75 PT 15.9 SEC (12.0-15.0) H 12/04/16 08:10 INR 1.27 (0.83-1.16) H 12/04/16 08:10 Neuro: SANTOS, Sens + Lt follows commands no calf tenderness, negative Homans Incision: CDI DEISY: scant this AM ICD10 Worksheet Patient Problems: Problems Problem Status Onset Fusion of spine of lumbar region Acute
[2016-12-09] MEDS: morphINE SR 15 MG TAB PO SCH ×2 (08:07→20:22)
[2016-12-09] MEDS: ENOXAPARIN 100 MG/ML SYR SC SCH ×2 (08:08→20:24)
[2016-12-09] MEDS: SENNOSIDES/DOCUSATE SODIUM TAB PO SCH ×2 (08:08→20:22)
[2016-12-09] MEDS: TAMSULOSIN HCL 0.4 MG CAP PO SCH (08:08)
[2016-12-09] MEDS: FERROUS SULFATE 325 MG TAB PO SCH (08:08)
[2016-12-09] MEDS: FAMOTIDINE 20 MG TAB PO SCH ×2 (08:09→20:22)
[2016-12-09] MEDS: POLYETHYLENE GLYCOL 3350 17 GM PKT PO SCH ×2 (08:09→16:52)
--- NOTE | 2016-12-09 11:03 | ASMTCMCOM ---
CM Note CM Note Notes: Neurosurgery note mentions that patient will d/c home with home health in a few days. I spoke with patient who is amenable to home health. Humera from [facility] confirms that they can accept patient upon d/c. Address/phone confirmed with patient. CM will follow. Date Signed: 12/09/2016 11:02 AM Electronically Signed By:Elva Patino RN
[2016-12-09] MEDS: LACTULOSE 20 GM/30 ML UDCUP PO PRN (12:52)
[2016-12-10] MEDS: POLYETHYLENE GLYCOL 3350 17 GM PKT PO SCH ×2 (00:09→08:16)
[2016-12-10] MEDS: ACETAMINOPHEN 500 MG TAB PO SCH ×2 (05:28→13:50)
[2016-12-10] MEDS: METHOCARBAMOL 750 MG TAB PO PRN ×2 (05:28→13:49)
--- NOTE | 2016-12-10 07:28 | SOAPPROG ---
SOAP Progress Note Assessment/Plan: Assessment: 61 yo M POD #7 L1-S1 fusion with L2/3, L4/5, L5/S1 TLIF and L3 PSO Plan: neuro: stable and doing well overall :) sp IVC filter placement, dvt in right calf before surgery, on lovenox 100mg sq bid, recheck KUB to evaluate IVC filter follow hg/hct, anemia from high EBL (4500 ml), transfused yesterday, recheck hg/ hct today x-rays look great DEISY removed LSO Brace when out of bed PT/OT likely home with [facility] today please call with neuro changes discussed with DR Rodriguez 12/03/16 18:28 12/04/16 07:36 12/07/16 08:01 12/08/16 07:53 12/10/16 07:26 Subjective: back pain improving, +bm yesterday, no leg pain, continued numbness in right calf Objective: Vital Signs Temp Pulse Resp BP Pulse Ox 36.7 C 77 14 106/70 95 12/10/16 00:00 12/10/16 00:00 12/10/16 00:00 12/10/16 00:00 12/10/16 00:00 Laboratory Results 12/08/16 15:00 12/06/16 02:55 12/09/16 12/10/16 12/11/16 05:59 05:59 05:59 Intake Total 1751 1950 Output Total 1676 1602 Balance 75 348 PT 15.9 SEC (12.0-15.0) H 12/04/16 08:10 INR 1.27 (0.83-1.16) H 12/04/16 08:10 AAOX4, +FC PERRL, EOMI, no facial droop 5/5 + light touch C/D/I ICD10 Worksheet Patient Problems: Problems Problem Status Onset Fusion of spine of lumbar region Acute - ICD10 Problem Qualifiers (1) Fusion of spine of lumbar region
[2016-12-10 07:52] LABS: HEMATOCRIT 24.4 % (40.0-51.0); HEMOGLOBIN 8.8 g/dL (13.7-17.5); MEAN CELL HEMOGLOBIN 34.2 pg (27.9-34.1); MEAN CELL HEMOGLOBIN CONCENTR. 36.1 g/dL (32.4-36.7); MEAN CELL VOLUME 94.9 fL (81.5-99.8); RED BLOOD CELL COUNT 2.57 10^6/uL (4.40-6.38); RED CELL DISTRIBUTION WIDTH 15.6 % (11.5-15.2)
[2016-12-10] MEDS: SENNOSIDES/DOCUSATE SODIUM TAB PO SCH (08:15)
[2016-12-10] MEDS: ENOXAPARIN 100 MG/ML SYR SC SCH (08:16)
[2016-12-10] MEDS: FAMOTIDINE 20 MG TAB PO SCH (08:16)
[2016-12-10] MEDS: FERROUS SULFATE 325 MG TAB PO SCH (08:16)
[2016-12-10] MEDS: TAMSULOSIN HCL 0.4 MG CAP PO SCH (08:16)
[2016-12-10] MEDS: morphINE SR 15 MG TAB PO SCH (08:16)
[2016-12-10 08:24] VITALS: BP 122/73; PULSE 66; RESP 16; TEMP 97.7; O2SAT 93
--- NOTE | 2016-12-10 14:42 | ASDISCHSUM ---
Discharge Information Plan Status:Home with Home Health Medically Cleared to Leave: Discharge Date:12/10/2016 02:00 PM CM D/C Disposition:Home Health Service ADT D/C Disposition:Home Health Service Projected Discharge Date:12/10/2016 02:00 PM Transportation at D/C:Family Discharge Delay Reason: Follow-Up Date:12/10/2016 02:00 PM Discharge Slot: Final Diagnosis: Placement Information Patient Contact Information Contact Name:SHANTEL Relationship: Address:[address] City:[place] Alternate Phone: State/Zip Code:[place] [address] Email: Financial Information Financial Class:HMO and PPO Plans Primary Plan Desc:[facility] Primary Plan Number:[id number] Secondary Plan Desc: Secondary Plan Number: Assessment Information [facility] CM Progress Note CM Note CM Note Notes: Chart reviewed. Pt s/p spinal surgery. PT and OT evals pending. Brace to be delivered about noon anticipate evals to start after that. Needs TBD at this time. CM to follow, Date Signed: 12/04/2016 11:11 AM Electronically Signed By:Rena Wyatt RN [facility] CM Progress Note CM Note CM Note Notes: Reviewed chart re: d/c poc, pt's progress. Per ICU rounds, pt w/ extensive blood loss during surgery; IVC filter placed Wednesday for DVT right leg. PT/OT evals complete, both rec home w/ no needs. Brace delivered. Anticipate pt will likely d/c home w/ family support when medically stable. CM will cont to follow. Date Signed: 12/05/2016 05:58 PM Electronically Signed By:Maryann Bond RN [facility] CM Progress Note CM Note CM Note Notes: Neurosurgery note mentions that patient will d/c home with home health in a few days. I spoke with patient who is amenable to home health. Humera from [facility] confirms that they can accept patient upon d/c. Address/phone confirmed with patient. CM will follow. Date Signed: 12/09/2016 11:02 AM Electronically Signed By:Elva Patino RN Intervention Information
== END 2016-12-10 14:00 | disposition home health service (06) | DRG 454 ==
LOC: F3N 07:51 → F2N 16:47
PROVIDERS: ADMIT Neurological Surgery; ATTEND Neurological Surgery
DX: M40.36 Flatback syndrome, lumbar region (principal); T82.528A Displacement of other cardiac and vascular devices and implants, initial encounter; D62 Acute posthemorrhagic anemia; E78.5 Hyperlipidemia, unspecified; Z86.718 Personal history of other venous thrombosis and embolism; Z86.711 Personal history of pulmonary embolism; Z95.1 Presence of aortocoronary bypass graft; Z95.4 Presence of other heart-valve replacement; Z79.01 Long term (current) use of anticoagulants
CPT/HCPCS: 97116-GP; 97161-GP; 97165-GO; 97535-GO; C1713; C1769; C1773; C1892; J0171; J0690; J1100; J1170; J1644; J1650; J2250; J2274; J2310; J2370; J2405; J2704; J3010; J7060; P9012; P9016; P9017; P9035; P9041; Q9967

== ENCOUNTER 2016-12-13 13:25 | Observation (INO) | payer OTHER ==
--- NOTE | 2016-12-13 13:38 | EDPHY ---
H & P Stated Complaint: constipated,surg 12/03;having trouble getting O2 at home (has RX) Time Seen by Provider: 12/13/16 13:38 - Personal History Current Tetanus Diphtheria and Acellular Pertussis (TDAP): Yes - Medical/Surgical History Hx Asthma: No Hx Chronic Respiratory Disease: No Hx Diabetes: No Hx Cardiac Disease: No Hx Renal Disease: No Hx Cirrhosis: No Hx Alcoholism: No Hx HIV/AIDS: No Hx Splenectomy or Spleen Trauma: No Other PMH: back surgeries, aortic graft, aortic valve replacement; CABG - Social History Smoking Status: Former smoker Constitutional: Initial Vital Signs Temperature (C) 36.5 C 12/13/16 13:26 Heart Rate 66 12/13/16 13:26 Respiratory Rate 16 12/13/16 13:26 Blood Pressure 113/67 12/13/16 13:26 O2 Sat (%) 97 12/13/16 13:26 O2 Delivery Mode Room Air Allergies/Adverse Reactions: erythromycin base [Erythromycin Base] Allergy (Mild, Verified 12/13/16 13:32) GI Home Medications: Medication Instructions Recorded Ferrous Sulfate [Ferrous Sulf 325 325 mg PO DAILY 11/05/16 MG (*)] Warfarin Sodium [Coumadin 5MG (*)] 5 mg PO MWF@16 11/05/16 Warfarin Sodium [Coumadin 5MG (*)] 10 mg PO SUTUTHSA@12/03/16 Tamsulosin HCl [Flomax 0.4 MG (*)] 0.4 mg PO DAILY #0 cap 12/10/16 oxyCODONE IR [Oxycodone Ir (*)] 5 - 10 mg PO Q4HRS PRN tab 12/10/16 Acetaminophen [Tylenol ES 500 mg 1,000 mg PO BID@,12/13/16 (*)] Bisacodyl [Dulcolax] 10 mg RC DAILY PRN 12/13/16 Diazepam [Valium 5 MG (*)] 5 mg PO HS PRN 12/13/16 Herbals/Supplements -Info Only 1 ea PO DAILY 12/13/16 Methocarbamol [Robaxin 750 mg (*)] 750 mg PO Q6H PRN 12/13/16 Sennosides/Docusate Sodium 2 each PO DAILY 12/13/16 [Senna-S Tablet] Sod Phos,M-B/Na Phos,Di-Ba [Fleet 266 ml RC PRN PRN 12/13/16 Enema] morphINE SR [Ms Contin/Oramorph 15 15 - 30 mg PO BID 12/13/16 mg (*)] Medical Decision Making - Diagnostics Imaging Results: Imaging Impressions Chest/Thorax CTA 12/13/16 13:49 Impression: 1. No evidence of thrombopulmonary embolic disease. 2. Minimal airways disease and minimal posterior dependent atelectasis. Findings discussed with marisol Jeff working with emergency department physician, New Cunningham MD on December 13, 2016 at 4:10 p.m. Extremity Venous Study 12/13/16 13:50 Impression: Persistent, improved DVT in the distal femoral vein and peroneal vein with no residual popliteal DVT identified. Findings discussed with New Cunningham MD on December 13, 2016 at 1510 hours. Imaging: Discussed imaging studies w/ yardage caller Radiologist, I viewed and interpreted images myself ED Course/Re-evaluation: CHIEF COMPLAINT: Post-surgical dyspnea, fatigue HISTORY OF PRESENT ILLNESS: The patient is an anticoagulated 61 y/o male arriving with his at the referral of his PCP, Dr. Bro, for fatigue and hypoxemia of 78% 10 days post spinal fusion. He has a history of CABG, active right leg DVT, and IVC. He had an L1-S1 spinal fusion on 12/03/[address] Collins here. He required blood transfusion with 2 units PRBCs and reports his Hgb on discharge was 8.3. He felt well on discharge, but since returning to his house at 8,000[place] he's felt dyspneic and fatigued. He has felt these symptoms following previous surgeries upon his return to altitude as well. He denies any chest pain, fever, or other symptoms. He finished his Lovenox yesterday and started Coumadin. His also notes he has increased right leg swelling, where his current DVT, following the surgeries and associated tingling sensation. He is using high-dose opiates for post-surgical pain and also complains of significant constipation despite multiple OTC remedies. REVIEW OF SYSTEMS: A 10 point review of systems was performed and is negative with the exception of the elements mentioned in the history of present illness. PHYSICAL EXAM: HR, BP, O2 Sat, RR. Temp noted General Appearance: Alert, well hydrated, appropriate, and non-toxic appearing. Head: Atraumatic without scalp tenderness or obvious injury Eyes: Pupils equal, round, pinpoint, EOMI, no trauma, no injection. Nose: Atraumatic, no rhinorrhea, clear. Throat: There is no erythema or exudates, no lesions, normal tonsils, mucus membranes moist. Neck: Supple, nontender, no lymphadenopathy. Respiratory: No retractions, no distress, no wheezes, and no accessory muscle use. Lungs are clear to auscultation bilaterally. Hypoventilation. Cardiovascular: Regular rate and rhythm, no murmurs, rubs, or gallops. Bilatera dorsalis pedis and posterior tibial pulses intact. Good capillary refill all extremities. Gastrointestinal: Abdomen is soft, nontender, non-distended, no masses, no rebound, no guarding, no peritoneal signs. Musculoskeletal: Normal active ROM of all extremities, atraumatic. Well- healing vertical lumbar-sacral surgical incision without any signs of infection. Neurological: Alert, appropriate, and interactive. The patient has non-focal cranial nerves, motor, sensory, and cerebellar exam. Skin: No rashes, good turgor, no nodules on palpation. Past medical history: DVT x2 Past surgical history: CABG, L1-S1 fusion 12/03/16, IVC filter placed 12/08/16, aortic graft, aortic valve replacement Family history: noncontributory Social history: Lives in [place] at [place]. PCP: Dr. Bro DIAGNOSTICS/PROCEDURES/CRITICAL CARE TIME: The 12 lead EKG was interpreted by myself. Sinus mechanism rate 60. Inferolateral inverted T waves. The most recent EKG we can access is from 2008, which shows some T wave inversion. See hard copy and/or "tracemaster" electronic copy for interpretation. Chest CTA: negative for PE Right leg US: existing DVT is smaller DIFFERENTIAL DIAGNOSIS: The differential diagnosis for the patient's shortness of breath and hypoxemia included but was not limited to pneumonia, myocardial infarction, acute mountain sickness, high altitude pulmonary edema, congestive heart failure, and pulmonary embolus. MEDICAL DECISION MAKING: This is an anticoagulated 61 y/o male with a complicated medical history who presents with dyspnea and fatigue 10 days out from a large lumbar fusion. He has a prior history of DVTs and an active right leg DVT and just bridged from his Lovenox to Coumadin. He is slightly hypoventilating and has pinpoint pupils on exam, which are likely related to his post-surgical opiate use and could be contributing to his dyspnea and hypoxemia. Plan for full PE work up without d- dimer given his risk factors and current DVT. IV established. Labs drawn. Chest CTA, right leg US, and EKG ordered. 1515: Reassessed patient and discussed lab studies. His Hgb is 10 and Hct is 29. I suspect his opiate use and anemia are the main contributing factors to his hypoxemia, dyspnea, and fatigue. He would prefer to return home to [facility] with O2, but I've recommended admission for transfusion particularly given his history of cardiac disease. He will discuss options with his family. PE study is still pending. 1615: Reassessed patient and discussed CTA results, which show no evidence of PE. I've continued to recommend admission and transfusion, which he and his agree to. He will be typed & crossed for transfusion. 2 units PRBCs ordered. Spoke with hospitalist service. Dr. Barksdale accepts admission. Updated Dr. Bro on patient condition. - Data Points Laboratory Results: Laboratory Results 12/13/16 14:00 12/13/16 14:00 12/13/16 12/13/16 12/13/16 14:00 14:00 14:00 WBC 8.03 10^3/uL 10^3/uL (3.80-9.50) RBC 3.04 10^6/uL L 10^6/uL (4.40-6.38) Hgb 10.1 g/dL L g/dL (13.7-17.5) Hct 29.2 % L % (40.0-51.0) MCV 96.1 fL fL (81.5-99.8) MCH 33.2 pg pg (27.9-34.1) MCHC 34.6 g/dL g/dL (32.4-36.7) RDW 15.8 % H % (11.5-15.2) Plt Count 342 10^3/uL 10^3/uL (150-400) MPV 8.7 fL fL (8.7-11.7) Neut % (Auto) Not Reported Lymph % (Auto) Not Reported Castro % (Auto) Not Reported Eos % (Auto) Not Reported Baso % (Auto) Not Reported Nucleat RBC Rel Count 0.0 % % (0.0-0.2) Absolute Neuts (auto) Not Reported Absolute Lymphs (auto) Not Reported Absolute Monos (auto) Not Reported Absolute Eos (auto) Not Reported Absolute Basos (auto) Not Reported Absolute Nucleated RBC 0.00 10^3/uL 10^3/uL (0-0.01) Immature Gran % Not Reported Seg Neutrophils % 52 % % Band Neutrophils % 5 % % Lymphocytes % 27 % % Monocytes % 11 % % Eosinophils % 2 % % Metamyelocytes % 3 % % Immature Gran # Not Reported Absolute Seg Neuts 4.18 10^/uL 10^/uL (1.70-6.50) Absolute Band Neuts 0.40 10^3/uL 10^3/uL (0.00-0.70) Absolute Lymphocytes 2.17 10^3/uL 10^3/uL (1.00-3.00) Absolute Monocytes 0.88 10^3/uL H 10^3/uL (0.30-0.80) Absolute Eosinophils 0.16 10^3/uL 10^3/uL (0.03-0.40) Absolute Metamyelocyte 0.24 10^3/mL H 10^3/mL (0.00-0.00) Platelet Estimate ADEQUATE (ADEQ) Large Platelets PRESENT H Polychromasia 1+ H PT 16.9 SEC H SEC (12.0-15.0) INR 1.37 H (0.83-1.16) Sodium 137 mEq/L mEq/L (134-144) Potassium 4.1 mEq/L mEq/L (3.5-5.2) Chloride 106 mEq/L mEq/L (97-110) Carbon Dioxide 21 mEq/l L mEq/l (22-31) Anion Gap 10 mEq/L mEq/L (8-16) BUN 10 mg/dL mg/dL (7-23) Creatinine 0.9 mg/dL mg/dL (0.7-1.3) Estimated GFR > 60 Glucose 84 mg/dL mg/dL (70-100) Calcium 8.9 mg/dL mg/dL (8.5-10.4) NT-Pro-B Natriuret Pep 938 pg/mL H pg/mL (0-125) Medications Given: Discontinued Medications Sodium Chloride (Ns) 500 mls @ 1,000 mls/hr IV EDNOW ONE PRN Reason: Protocol Stop: 12/13/16 14:17 Last Admin: 12/13/16 14:44 Dose: 500 mls Departure - Departure Disposition: [facility] Inpatient Acute Clinical Impression: Hypoxemia Anemia Qualifiers: Anemia type: other cause Other causes of anemia: other cause, not classified Qualified Code(s): D64.89 - Other specified anemias Dyspnea Qualifiers: Dyspnea type: shortness of breath Qualified Code(s): R06.02 - Shortness of breath Condition: Fair Report Scribed for: New Cunningham Report Scribed by: Randee Garcia Date of Report: 12/13/16 Time of Report: 13:56
[2016-12-13] MEDS ORDERED: NS 500 ML IV ONE (13:48)
--- NOTE | 2016-12-13 13:55 | CPEKG ---
Heart Rate: 60 RR Interval: 1000 P-R Interval: 192 QRSD Interval: 100 QT Interval: 448 QTC Interval: 448 P [place]: -39 QRS [place]: 74 T Wave [place]: 248 EKG Severity - ABNORMAL ECG - EKG Impression: SINUS RHYTHM EKG Impression: LATERAL INFARCT, AGE INDETERMINATE EKG Impression: ABNORMAL T, CONSIDER ISCHEMIA, DIFFUSE LEADS Electronically Signed By: New Cunningham 13-Dec-2016 18:19:15
[2016-12-13 14:11] LABS: ADD DIFF? YES; ADD MORPH? NO; ADD SCAN? NO; ATYPICAL LYMPHOCYTE FLAG 30 (0-99); FRAGMENT RBC FLAG 0 (0-99); HEMOGLOBIN 10.1 g/dL (13.7-17.5); LEFT SHIFT FLG 30 (0-99); LIPEMIA HEMOLYSIS FLAG 90 (0-99); RED CELL DISTRIBUTION WIDTH 15.8 % (11.5-15.2)
[2016-12-13 14:17] LABS: HEMATOCRIT 29.2 % (40.0-51.0); MEAN CELL HEMOGLOBIN 33.2 pg (27.9-34.1); MEAN CELL HEMOGLOBIN CONCENTR. 34.6 g/dL (32.4-36.7); MEAN CELL VOLUME 96.1 fL (81.5-99.8); MEAN PLATELET VOLUME 8.7 fL (8.7-11.7); PLATELET CLUMPS FLAG 0 (0-99); PLATELET COUNT 342 10^3/uL (150-400); RED BLOOD CELL COUNT 3.04 10^6/uL (4.40-6.38)
[2016-12-13 14:19] LABS: INR 1.37 (0.83-1.16); PROTIME(PATIENT) 16.9 SEC (12.0-15.0)
[2016-12-13 14:23] LABS: ANION GAP 10 mEq/L (8-16); CALCIUM 8.9 mg/dL (8.5-10.4); CARBON DIOXIDE 21 mEq/l (22-31); CHLORIDE 106 mEq/L (97-110); CREATININE 0.9 mg/dL (0.7-1.3); GLOMERULAR FILTRATION RATE > 60; GLUCOSE 84 mg/dL (70-100); POTASSIUM 4.1 mEq/L (3.5-5.2); SODIUM 137 mEq/L (134-144)
[2016-12-13] MEDS ORDERED: IOPAMIDOL (ISOVUE 370) 100 ML BTL IV ONE (14:29)
[2016-12-13 15:11] LABS: PLATELET ESTIMATE ADEQUATE (ADEQ)
[2016-12-13 15:12] LABS: LARGE PLATELETS PRESENT
[2016-12-13 15:13] LABS: POLYCHROMASIA 1+
[2016-12-13] MEDS ORDERED: ONDANSETRON DISINTEGRATING 4 MG TAB PO PRN (17:52)
[2016-12-13] MEDS ORDERED: ALBUTEROL 3 ML DEYVIAL IH PRN (17:52)
[2016-12-13] MEDS ORDERED: ONDANSETRON 4 MG/2 ML VIAL IVP PRN (17:52)
[2016-12-13] MEDS ORDERED: PROMETHAZINE HCL 25 MG/ML INJ IVP PRN (17:52)
[2016-12-13] MEDS ORDERED: DIAZEPAM 5 MG TAB PO PRN (17:54)
[2016-12-13] MEDS ORDERED: SODIUM PHOSPHATE DIBASIC RC PRN (17:54)
[2016-12-13] MEDS ORDERED: SODIUM PHOSPHATE MONOBASIC RC PRN (17:54)
[2016-12-13] MEDS ORDERED: oxyCODONE IR 5 MG TAB PO PRN (17:54)
[2016-12-13] MEDS ORDERED: LACTULOSE 20 GM/30 ML UDCUP PO PRN (17:56)
[2016-12-13] MEDS ORDERED: BISACODYL 10 MG SUPP PR PRN (17:56)
[2016-12-13] MEDS ORDERED: POLYETHYLENE GLYCOL 3350 17 GM PKT PO PRN (17:56)
[2016-12-13] MEDS ORDERED: MAGNESIUM HYDROXIDE 30 ML UDCUP PO PRN (17:56)
[2016-12-13] MEDS ORDERED: ENOXAPARIN 100 MG/ML SYR SC SCH (18:15)
[2016-12-13] MEDS: oxyCODONE IR 5 MG TAB PO PRN ×2 (18:46→22:55)
[2016-12-13] MEDS: ENOXAPARIN 100 MG/ML SYR SC SCH (18:47)
[2016-12-13] MEDS: SENNOSIDES/DOCUSATE SODIUM TAB PO SCH (20:16)
[2016-12-13] MEDS: morphINE SR 15 MG TAB PO SCH (20:16)
[2016-12-13] MEDS: METHOCARBAMOL 750 MG TAB PO PRN (20:16)
[2016-12-13] MEDS: ACETAMINOPHEN 500 MG TAB PO SCH (20:18)
[2016-12-13] MEDS ORDERED: WARFARIN SODIUM 5 MG TAB PO SCH (21:00)
--- NOTE | 2016-12-13 21:45 | GHP ---
[f rep st] HISTORY AND PHYSICAL DATE OF ADMISSION: 12/13/2016 CHIEF COMPLAINT: Shortness of breath. HISTORY: This is a 61-year-old man with a past medical history of coronary artery disease, PE, and D VT, who is status post an L1 through sacral fusion earlier this month. The patient was actually disc harged from the hospital 2 days prior and on arrival at home immediately began to feel short of breat h, lightheaded, dizzy, and had issues with blurry vision. He notes that prior to discharge while her e in the hospital, he felt quite well. He notes that he has had similar issues in the past post CABG procedure many years ago, and it was found to be secondary to hypoxia occurring where he resides up at 8000 feet. After this hospitalization, he was attempting to get home oxygen set up, but ran into several obstacles and was unable to do so. He notes that he was working with Physical Therapy today and was noted to have oxygen saturation in the mid 80s and as low as the mid 70s. He was doing fairl y well at rest, but with any kind of exertion he would desat again. PAST MEDICAL HISTORY: Includes: 1. Coronary artery disease. 2. PE and DVT. 3. Chronic back pain. 4. Valvular heart disease. 5. Triple-A. PAST SURGICAL HISTORY: Includes: 1. L1 through S1 fusion. 2. Prior spinal fusion as well. 3. CABG. 4. IVC filter. 5. Aortic valve replacement. 6. Aortic graft. FAMILY HISTORY: Reviewed and noncontributory. SOCIAL HISTORY: The patient is quite active. He lives in [place] [address] [place]. He is a nonsmoker , nondrinker, and nondrug user. REVIEW OF SYSTEMS: A 10-point review of systems was obtained and negative, except as per the HPI. HOME MEDICATIONS: Include: 1. Oxycodone. 2. MS Contin. 3. Warfarin. 4. Tamsulosin. 5. Fleet enema. 6. Senna. 7. Robaxin. 8. Iron. 9. Valium. 10. Bisacodyl. 11. Tylenol. ALLERGIES: Include erythromycin. PHYSICAL EXAMINATION: VITAL SIGNS: BP 120/69, heart rate 75, respiratory rate 16, O2 sat 96% on den m air, temperature 37.1. GENERAL APPEARANCE: This is a well-developed, well-nourished man. He is a wake and alert. He is in no acute distress. EYES: Anicteric. HENT: Oropharynx clear. CARDIOVASC ULAR: Regular rate and rhythm. No MRG. PULMONARY: CTA bilaterally. Normal work of breathing. AB DOMEN: Soft, nontender. Positive bowel sounds. EXTREMITIES: No clubbing, cyanosis, or edema. SKI N: Warm, dry, and well perfused. NEURO/PSYCH: Oriented, appropriate, pleasant. CLINICAL DATA: Labs reviewed. Significant for a hemoglobin of 10 and a hematocrit of 29.2. Baselin e hematocrit is approximately 46. Chemistry is unremarkable. Chest CTA personally reviewed and inte rpreted shows no PE, minimal airways disease, and minimal posterior dependent atelectasis present. E KG personally reviewed and interpreted shows a sinus rhythm. There are diffuse T-wave inversions. E xtremity venous ultrasound study shows persistent but improved DVT in the distal femoral vein and per ventura vein, and the popliteal DVT has resolved. ASSESSMENT AND PLAN: This is a 61-year-old man with a history of pulmonary embolism, deep vein throm bosis, coronary artery disease, and status post recent lumbosacral fusion, presenting with acute hypo xic respiratory failure. 1. Acute hypoxic respiratory failure. Again, the patient is having difficulty with maintaining his saturations where he lives at 8000 feet. He was noted and documented to have O2 sats in the 70s to 8 0s while at home. I suspect this is secondary to postoperative atelectasis exacerbated by anemia and being at higher elevation. He will need to be set up for home oxygen. 2. Anemia. This is worse than his usual baseline. Given his significant coronary history as well a s that he resides at a significant elevation, this is likely contributing to the above. He is being transfused 2 units of packed red blood cells right now. He will follow up with his primary care phys cedric. 3. Pulmonary embolism/deep vein thrombosis. Patient with an IVC filter in place. His INR is curren tly subtherapeutic. We will have Pharmacy adjust his warfarin dose, and he will be bridged with Love nox for the time being. 4. Coronary artery disease, without any complaints of chest pain currently. He does have diffuse T- wave abnormalities on EKG, but I have not been able to find an old EKG to compare. Again, he is asym ptomatic. Suspect this is old. We will repeat in a.m. 5. Recent lumbosacral fusion. Again, he has been doing well from a postoperative standing other arpit n issues with hypoxia as above. He will follow up with Neurosurgery as previously arranged. 6. Disposition. Observation status. Suspect he will need less than a 48-hour stay for evaluation a nd management of above. 7. The patient is new to my care. Old records reviewed and summarized as per HPI and past medical h istory. Care plan reviewed with the ER physician, including plans for transfusion. /[id number]/MODL
[2016-12-14] MEDS: ACETAMINOPHEN 325 MG TAB PO PRN ×2 (01:20→13:26)
[2016-12-14] MEDS: oxyCODONE IR 5 MG TAB PO PRN ×4 (01:21→13:23)
[2016-12-14] MEDS: METHOCARBAMOL 750 MG TAB PO PRN ×2 (01:21→09:58)
[2016-12-14 04:45] LABS: ADD DIFF? YES; ADD MORPH? NO; ADD SCAN? NO; ATYPICAL LYMPHOCYTE FLAG 10 (0-99); FRAGMENT RBC FLAG 0 (0-99); HEMATOCRIT 30.5 % (40.0-51.0); HEMOGLOBIN 10.4 g/dL (13.7-17.5); LEFT SHIFT FLG 30 (0-99); LIPEMIA HEMOLYSIS FLAG 90 (0-99); MEAN CELL HEMOGLOBIN 32.3 pg (27.9-34.1); MEAN CELL HEMOGLOBIN CONCENTR. 34.1 g/dL (32.4-36.7); MEAN CELL VOLUME 94.7 fL (81.5-99.8); MEAN PLATELET VOLUME 8.7 fL (8.7-11.7); PLATELET CLUMPS FLAG 0 (0-99); PLATELET COUNT 289 10^3/uL (150-400); RED BLOOD CELL COUNT 3.22 10^6/uL (4.40-6.38); RED CELL DISTRIBUTION WIDTH 16.2 % (11.5-15.2)
[2016-12-14 05:03] LABS: ANION GAP 6 mEq/L (8-16); CALCIUM 8.4 mg/dL (8.5-10.4); CARBON DIOXIDE 22 mEq/l (22-31); CHLORIDE 108 mEq/L (97-110); CREATININE 0.9 mg/dL (0.7-1.3); GLOMERULAR FILTRATION RATE > 60; GLUCOSE 82 mg/dL (70-100); POTASSIUM 4.3 mEq/L (3.5-5.2); SODIUM 136 mEq/L (134-144)
[2016-12-14 05:50] LABS: PLATELET ESTIMATE ADEQUATE (ADEQ); POLYCHROMASIA 1+
[2016-12-14] MEDS: ENOXAPARIN 100 MG/ML SYR SC SCH (06:07)
[2016-12-14 08:09] VITALS: BP 135/70; TEMP 97.9
[2016-12-14] MEDS ORDERED: TAMSULOSIN HCL 0.4 MG CAP PO SCH (09:00)
[2016-12-14] MEDS ORDERED: FERROUS SULFATE 325 MG TAB PO SCH (09:00)
[2016-12-14] MEDS ORDERED: SENNOSIDES/DOCUSATE SODIUM TAB PO SCH (09:00)
--- NOTE | 2016-12-14 09:05 | CPEKG ---
Heart Rate: 63 RR Interval: 952 P-R Interval: 196 QRSD Interval: 96 QT Interval: 420 QTC Interval: 430 P [place]: 72 QRS [place]: 75 T Wave [place]: 257 EKG Severity - ABNORMAL ECG - EKG Impression: SINUS RHYTHM EKG Impression: PROBABLE LEFT ATRIAL ABNORMALITY EKG Impression: LATERAL INFARCT, AGE INDETERMINATE EKG Impression: NONSPECIFIC T ABNORMALITIES, INFERIOR LEADS Electronically Signed By: Efrain Alaniz 17-Dec-2016 14:06:41
[2016-12-14] MEDS: morphINE SR 15 MG TAB PO SCH (09:53)
[2016-12-14] MEDS: SENNOSIDES/DOCUSATE SODIUM TAB PO SCH (09:53)
--- NOTE | 2016-12-14 10:58 | GCON ---
[f rep st] CONSULTATION NEUROSURGICAL CONSULTATION CHIEF COMPLAINT: Shortness of breath and fatigue. HISTORY OF PRESENT ILLNESS: The patient is a 61-year-old male known to our practice. On 12/03/2016, he underwent an L1 to L5 fusion with an L3 wedge osteotomy by Dr. Collins. He did have high intraoperative blood loss and was found to have anemia postoperatively related to his intraoperative blood loss. He was transfused during that admission and was subsequently discharged home. While at home, he did have some general fatigue with shortness of breath , dizziness, and feeling lightheaded. He returned back to the hospital. He was evaluated in the emergency department, and he was admitted by the hospitalists for further workup. He currently complains of ongoing incisional back pain. He has a stable postoperative numbness in his right anterior thigh. He is not having any new weakness, paresthesias, fevers, chills, or bowel or bladder problems. PAST MEDICAL HISTORY: 1. A previous right leg DVT. 2. Coronary artery disease. 3. Chronic back pain. 4. Valvular heart disease. 5. Abdominal aortic aneurysm. PAST SURGICAL HISTORY: Includes: 1. Recent lumbar fusion. 2. CABG. 3. IVC filter. 4. Aortic valve graft. 5. Aortic graft. ALLERGIES: Erythromycin. MEDICATIONS: Prior to admission are oxycodone, MS Contin, Coumadin, tamsulosin , senna, Robaxin, iron, Valium, bisacodyl, Tylenol, and Lovenox. FAMILY HISTORY: Patient has no family history of spine problems. SOCIAL HISTORY: Patient is and he lives at [place] at an altitude of 8000 feet. He does not smoke. Does not drink. Denies recreational drug use. REVIEW OF SYSTEMS: Negative. PHYSICAL EXAM: GENERAL: Patient is a 61-year-old male lying in bed, no apparent distress. HEAD, EYES, EARS, NOSE AND THROAT: Negative for drainage. EXTREMITIES: Addis, warm and dry. NEUROLOGIC: Patient is awake, alert, oriented x4. Pupils equal, round, reactive to light. Extraocular motions are intact. There is no evidence of facial droop. Tongue and uvula are midline. His motor strength is 5/5 in his arms and legs. His sensation is grossly intact to light touch in his arms and legs. Deep tendon reflexes are 1+ out of 4. BACK: His incision is clean, dry, and intact. IMPRESSION: This is a 61-year-old male who is approximately 10 days out from an L1 to L5 fusion with an L3 wedge osteotomy. He is neurologically stable but admitted with postoperative anemia. PLAN: All the above discussed in detail with the patient. At this point in time, his care is under the direction of the hospitalist. He does not appear to have any acute postoperative complications in regard to a wound infection. We will continue to follow him on a conservative basis, and once he is discharged, he can follow up in our clinic. This patient was seen by Dr. Lazaro as well. /[id number]/MODL MTDD
--- NOTE | 2016-12-14 10:58 | PDHOMEO2F ---
Home Oxygen Face to Face Home Orders: I certify that a physician or a nurse practitioner or physician's showroom sales assistant has had a [id number]-[id number] encounter with this patient on the date of this order due to the diagnosis listed, which relates to the primary reason the patient requires home oxygen. Alternative treatments have been tried, or considered, and deemed ineffective. It is anticipated that supplemental oxygen will result in improvement with treatment. Home oxygen qualifying diagnosis: hypoxic at altitude SpO2 on room air (%): 98 Frequency of home oxygen needed: continuous Home oxygen liters per minute: 2 Home oxygen delivery device: nasal cannula Concentrator: Yes E-tanks for mobility and back up: Yes If ordering portable O2, is the patient mobile in the home?: Yes I certify that, based on these findings, the home oxygen is medically necessary for this patient for the following length of time. Length of time home oxygen needed: 1 month (pt feels he needs o2 at altitude, will self pay)
--- NOTE | 2016-12-14 11:06 | PDIAF ---
- Diagnosis Diagnosis: anemia Code Status: Full Code - Medication Management Discharge Medications: Medications to Continue on Transfer Ferrous Sulfate [Ferrous Sulf 325 MG (*)] 325 mg PO DAILY 11/05/16 [Last Taken Unknown] Warfarin Sodium [Coumadin 5MG (*)] 5 mg PO MWF@11/05/16 [Last Taken 12/11/16 21:00 5mg] Warfarin Sodium [Coumadin 5MG (*)] 10 mg PO SUTUTHSA@12/03/16 [Last Taken 21:00 10mg] Tamsulosin HCl [Flomax 0.4 MG (*)] 0.4 mg PO DAILY #0 cap 12/10/16 [Last Taken 12/13/16 09:00 0.4mg] oxyCODONE IR [Oxycodone Ir (*)] 5 - 10 mg PO Q4HRS PRN tab 12/10/16 [Last Taken 12/13/16 14:30 5mg] Acetaminophen [Tylenol ES 500 mg (*)] 1,000 mg PO BID@12/13/16 [Last Taken 12/13/16 11:00] Bisacodyl [Dulcolax] 10 mg RC DAILY PRN 12/13/16 [Last Taken 12/12/16] Diazepam [Valium 5 MG (*)] 5 mg PO HS PRN 12/13/16 [Last Taken 12/12/16 21:00] Herbals/Supplements -Info Only 1 ea PO DAILY 12/13/16 [Last Taken 12/13/16] Methocarbamol [Robaxin 750 mg (*)] 750 mg PO Q6H PRN 12/13/16 [Last Taken 11:00] Sennosides/Docusate Sodium [Senna-S Tablet] 2 each PO DAILY 12/13/16 [Last Taken 12/13/16 09:00] Sod Phos,M-B/Na Phos,Di-Ba [Fleet Enema] 266 ml RC PRN PRN 12/13/16 [Last Taken 12/12/16] morphINE SR [Ms Contin/Oramorph 15 mg (*)] 15 - 30 mg PO BID 12/13/16 [Last Taken 12/13/16 09:00 15mg] Discharge Medications: Refer to the Discharge Home Medication list for PRN reason. PICC Care - Routine: N/A - Orders Services needed: Home Care, Registered Nurse, Physical Therapy Home Care Face to Face: I certify that this patient was under my care and that I had the required [id number]-ak-[id number] encounter meeting the encounter requirements on the discharge day. My findings support the fact that the patient is homebound as defined in Home Care Face to Face Continued: CMS Chapter 7 Medicare Benefits Manual 30.1.1 , The condition of the patient is such that there exists a normal inability to leave home and consequently, leaving home would require a considerable and taxing effort. Diet Recommendation: no restrictions on diet - Labs/Radiology PT/INR Date: 12/15/16 - Follow Up Care Current Providers and Referrals: Lázaro Garcia DO [Primary Care Provider] - As per Instructions
[2016-12-14 11:20] LABS: INR 1.53 (0.83-1.16); PROTIME(PATIENT) 18.4 SEC (12.0-15.0)
[2016-12-14 12:24] VITALS: PULSE 68; RESP 14; O2SAT 92
[2016-12-14] MEDS: ACETAMINOPHEN 500 MG TAB PO SCH (12:35)
--- NOTE | 2016-12-14 14:54 | GDS ---
[f rep st] DISCHARGE SUMMARY DISCHARGE DIAGNOSES: 1. Acute hypoxemic respiratory failure. 2. Anemia. 3. History of pulmonary emboli. 4. History of coronary artery disease. CONSULTATIONS: Neurosurgery. STUDIES AND PROCEDURES DONE: CT angio of the chest. PHYSICAL EXAMINATION: GENERAL: The patient is alert. VITAL SIGNS: Afebrile at 36.6, pulse is 66, respiratory rate is 18, blood pressure is 135/70, saturating 98% on room air. I have seen and evalua heidy the patient on the day of discharge. HOSPITAL COURSE: The patient is a 61-year-old male who presented to the emergency room with complain ts of shortness of breath. He was evaluated and diagnosed with: 1. Acute hypoxemic respiratory failure. He was requiring supplemental oxygen at the time of admissi on. Prior to disposition, he has been saturating 94% to 98% on room air. He wishes to have suppleme ntal oxygen provided as [place] 8000 [place], and feels that he is hypoxic with documented hyp oxia per his physical therapist at home. He will pay [id number] for supplemental oxygen. A presc ription has been provided for him. 2. Anemia. The patient has received 2 units of packed red blood cells during this hospitalization. I anticipate that this will assist in his acute hypoxemia. 3. History of pulmonary emboli. His INR is subtherapeutic in the setting of recent surgical interve ntion. He has been placed on Lovenox during this hospitalization, and will continue with Coumadin in the outpatient setting. An INR will be evaluated on 12/15/2016, with his home care music therapist, to be follow ed by his primary care physician. He has not been initiated on bridge therapy of Lovenox at the time of disposition, and have deferred this to his primary care physician. 4. History of coronary artery disease. There are no abnormalities requiring intervention. He did h ave diffuse T-waves on his EKG at the time of admission. His repeat EKG does show nonspecific T abno rmalities. Further followup will be with his primary care provider. 5. Recent lumbosacral fusion. This is stable. He did receive a consultation from Neurosurgery antonio ng this hospitalization, and will follow up with them in the outpatient setting. DISPOSITION: The patient will be discharged home with home health care, RN as well as PT have been o rdered. Again, he has had supplemental oxygen ordered per his wishes, and will pay for this out-of-p ocket. He will follow up with Dr. Garcia this week, as well as have an INR evaluation on 12/15/2016 . /[id number]/MODL
--- NOTE | 2016-12-14 15:46 | ASMTCMCOM ---
CM Note CM Note Notes: Pt was re-admitted with hypoxemia and anemia. He was discharged 12/10/16 after L1/S1 fusion. He went home with [facility] PT. He lives in [place] and had issues with anemia and oxygen needs after surgery. OPAL spoke with Meseret at [facility] about the above concerns - pt's had contacted her as well. Pt is discharging home today with [facility] RN/PT and home O2 through [facility]. Notified [facility]. Spoke with pt and his and answered their questions re homecare. Date Signed: 12/14/2016 03:45 PM Electronically Signed By:CONSUELO Reyes
--- NOTE | 2016-12-14 16:54 | ASDISCHSUM ---
Discharge Information Plan Status:Home with Home Health Medically Cleared to Leave:12/14/2016 Discharge Date:12/14/2016 03:16 PM CM D/C Disposition:Home Health Service ADT D/C Disposition:Home Health Service Projected Discharge Date:12/14/2016 11:00 AM Transportation at D/C:Family Discharge Delay Reason: Follow-Up Date:12/14/2016 11:00 AM Discharge Slot: Final Diagnosis: Placement Information Referral Type:*Home Health Care Services Referral ID:[id number] Provider Name:[facility] Address 1:[address] [address] Address 2: City:[place] Selection Factors: State:[place] Patient Contact Information Contact Name:SHANTEL Relationship: Address:[address] City:[place] Alternate Phone: State/Zip Code:[place] [address] Email: Financial Information Financial Class:HMO and PPO Plans Primary Plan Desc:[facility] Primary Plan Number:[id number] Secondary Plan Desc: Secondary Plan Number: Assessment Information [facility] Progress Note CM Note CM Note Notes: Pt was re-admitted with hypoxemia and anemia. He was discharged 12/10/16 after L1/S1 fusion. He went home with [facility] PT. He lives in [place] and had issues with anemia and oxygen needs after surgery. OPAL spoke with Meseret at [facility] about the above concerns - pt's had contacted her as well. Pt is discharging home today with [facility] RN/PT and home O2 through [facility]. Notified [facility]. Spoke with pt and his and answered their questions re homecare. Date Signed: 12/14/2016 03:45 PM Electronically Signed By:CONSUELO Reyes Intervention Information
[2016-12-14] MEDS ORDERED: WARFARIN SODIUM 5 MG TAB PO SCH (21:00)
== END 2016-12-14 15:16 | disposition home health service (06) ==
LOC: F3N 16:48
PROVIDERS: ADMIT Internal Medicine; ATTEND Internal Medicine
PROC: 30233N1 Transfusion of Nonautologous Red Blood Cells into Peripheral Vein, Percutaneous Approach (ICD-10-PCS; principal; 2016-12-13)
DX: J96.01 Acute respiratory failure with hypoxia (principal); D64.9 Anemia, unspecified; I82.511 Chronic embolism and thrombosis of right femoral vein; Z86.711 Personal history of pulmonary embolism; Z86.79 Personal history of other diseases of the circulatory system; Z87.891 Personal history of nicotine dependence
CPT/HCPCS: 36430; 71275; 93005; 93971; 97161; 97165; G0378; P9016; J1650; Q9967

== ENCOUNTER 2016-12-16 14:50 | Inpatient (IN) | payer OTHER ==
--- NOTE | 2016-12-16 15:52 | EDPHY ---
HPI/HX/ROS/PE/MDM Narrative: CHIEF COMPLAINT: Rash and dizziness HISTORY OF PRESENT ILLNESS: The patient is a 61 y/o male arriving to the ED status post lumbar spine fusion surgery about a week and half ago, complicated by profound anemia and hypoxemia with re-admission to the hospital following surgery. The patient had a L1-2 S1 spinal fusion on December 03. Patient was readmitted to the hospital 10 days later and was found to be anemic, as well as significantly hypoxic. His tells me that he was discharged after that visit 5 days ago with supplemental oxygen to use at home. They live at 8000 [place]. Since arriving home the patient has developed a rash. His also notes that he has seemed very short of breath, dizziness when he is up and about and patient describes nystagmus with generalized instability. He has been using the oxygen at 3-4 L per minute and has not been hypoxic while at altitude. However, his reports that he is slow to move around, frequently dizzy, frequently unstable, and seems short of breath. He has also noticed numbness in the right lower extremity as well as weakness in his right leg which has been persistent. Patient also reports constipation intermittent with diarrhea with black and tarry stools, chills, and shortness of breath. He denies any new medications, fever, nausea, vomiting, cough, chest pain, abdominal pain or any other associated symptoms. He denies taking medication for his rash. No fever, chest pain, palpitations, vomiting, diarrhea, urinary complaints, headache, lightheadedness. REVIEW OF SYSTEMS: Aside from elements discussed in the HPI, a comprehensive 10-point review of systems was reviewed and is negative. PAST MEDICAL HISTORY: L1-S1 surgery 12/03/16, DVT x2, CABG, IVC filter place , aortic graft, aortic valve replacement SOCIAL HISTORY: at bedside, lives in the [facility], PCP: Dr. Bro Past medical records reviewed including 12/13 visit to the ED. VITAL SIGNS: Reviewed by me GENERAL: Well-developed, well-nourished, resting comfortably in no respiratory distress. HEENT: Atraumatic. Eyes: Pupils are 2 mm bilaterally. No icterus, no injection. Mouth: moist mucous membranes. No erythema or lesions. Neck: supple with no adenopathy. LUNGS: Clear to auscultation bilaterally, no wheezes, rhonchi or rales. CARDIAC: Regular rate and rhythm, no rubs, murmurs or gallops. ABDOMEN: Soft, nontender, nondistended, bowel sounds normal. BACK: No CVA tenderness. Midline surgical incision with some ecchymosis but looks healthy and healing. EXTREMITIES: No trauma. No edema. Range of motion is normal throughout. NEURO: Alert and oriented, motor strength diminished in the right lower extremity. Cranial nerves 2-12 are intact. Nystagmus on left lateral gaze. Pinpoint pupils. SKIN: Diffuse almost urticarial rash without petechia most prominent along the waist. Warm and dry. PSYCHIATRIC: Normal mentation, no agitation. STOOL: Normal and brown in appearance. Portions of this note were transcribed by a director of medical services. I personally performed a history, physical exam, medical decision making, and confirmed accuracy of information the transcribed note. ED Course: The patient is a 61 y/o male presenting with nystagmus, dark diarrhea, and a rash. He had surgery 12/03/16 for an L1-S1 fusion. He has increased fatigue and shortness of breath. The rash is urticarial in appearance without petechia over his waist primarily. Stool was normal in appearance. Nystagmus noticeable only when looking left. 12-LEAD EKG: Please see the full report in [facility]. My interpretation: Inverted T-wave for V3-V6 which is not a change from normal. Labs ordered in the patient received Benadryl for his rash. 1600: I spoke to ALFONSO Chaudhry for Dr. Collins the surgeon, who saw the patient earlier today. 1641: Head CT shows nothing acute. 1702: Chest X-ray shows no active cardio pulmonary disease. 1720: I reassessed the patient. is very concerned regarding the weakness in his leg. They are also concerned regarding the nystatin mass and off balance that the patient has developed. Patient is currently anticoagulated also has had recent surgery. Decision was made to obtain MRI of the lumbar spine as well as MRI of the brain. X-ray: Chest x-ray was obtained. I viewed the images myself on the PACS system. My interpretation of the images is: negative for active cardiopulmonary disease. The radiologist interpretation is in agreement. I discussed the x-ray findings with the patient. Study: MRI of the: Spine Indication: Neurologic Results: MRI scan of the body parts was obtained. The results of the study are bulge at L2-L3 that is worse on the right side. Unclear if this is new. The study was read by the radiologist, Dr. Olsen. I viewed the images myself on the PACS system. Study: MRI of the: Brain Indication: Neurologic Results: MRI scan of the body parts was obtained. The results of the study are negative for any acute processes. The study was read by the radiologist, Dr. Olsen. I viewed the images myself on the PACS system. After patient returned from MRI he was assessed again. His rash has improved with the Benadryl. He was able to sleep. His vital signs here remained stable. However, on further discussions with the she expresses significant concern over the way the patient has appeared when he is at home. They do live as mentioned before at 8000 feet. She describes profound instability, dizziness, off balance, and fatigue despite having oxygen at home. Plan at this point is to admit the patient to the hospital for ongoing observation. At this point it seems that the patient is not safe to be discharged to 8000 feet. Wait for the patient understood the the he may need to recover from surgery at a lower elevation. Patient will be admitted to the medicine service, Dr. Ann Lacey. MDM: Differential diagnosis of the patient's dizziness was considered including but not limited to peripheral and central causes of vertigo, cardiac arrhythmias, cardiac ischemia, electrolyte disturbances, neurologic causes, orthostatic causes including dehydration, and blood loss. Differential diagnosis for the patient's shortness of breath was considered including but not limited to pulmonary infectious processes, COPD exacerbation, pulmonary emboli, pulmonary edema, congestive heart failure, and cardiac causes. - Data Points Imaging Results: Imaging Impressions Chest X-Ray 12/16/16 15:49 Impression: 1. No active cardiopulmonary disease seen. Head CT 12/16/16 15:49 Impression: 1. Normal CT brain without contrast. 2. No hemorrhage or mass effect. 3. Mild cerebrovascular atherosclerosis. Findings discussed with Emergency Department physician's library clerical assistant, Margo Rahman, at 1613 hours, 12/16/2016. Final report concurs with initial preliminary interpretation. Brain MRI 12/16/16 17:43 Impression: 1. No evidence for acute infarct. 2. Minimal periventricular and deep hemispheric white matter change that can be seen with small vessel ischemic disease. 3. Scattered foci of low signal intensity suggesting hemosiderin deposition that can be seen with cerebral amyloid angiopathy. Results called and discussed with Humaira Moon MD, at 2144 hours 16 December 2016. Lumbar Spine MRI 12/16/16 17:43 Impression: Postsurgical changes of fusion laminectomy L1-S1 as detailed above. Complex fluid collection posterior to the laminectomy site with which the recent surgery is more likely hematoma and seroma. There is appearance of a broad-based annular bulge with a complex appearance which could be a combination of postsurgical change and granulation response but is causing moderate central spinal canal and moderate severe bilateral neural foraminal narrowing, right greater than left, at the L2-L3 level. Please see detailed description by level above. Results called and discussed with Humaira Moon MD, at 2119 hours 16 December 2016. Imaging: Discussed imaging studies w/ calliope player Radiologist, I viewed and interpreted images myself Laboratory Results: Laboratory Results 12/16/16 15:28 12/16/16 15:28 12/16/16 12/16/16 12/16/16 16:00 15:28 15:28 WBC RBC Hgb Hct MCV MCH MCHC RDW Plt Count MPV Neut % (Auto) Lymph % (Auto) [place] % (Auto) Eos % (Auto) Baso % (Auto) Nucleat RBC Rel Count Absolute Neuts (auto) Absolute Lymphs (auto) Absolute Monos (auto) Absolute Eos (auto) Absolute Basos (auto) Absolute Nucleated RBC Immature Gran % Immature Gran # PT 20.9 SEC H SEC (12.0-15.0) INR 1.79 H (0.83-1.16) Sodium 136 mEq/L mEq/L (134-144) Potassium 3.9 mEq/L mEq/L (3.5-5.2) Chloride 105 mEq/L mEq/L (97-110) Carbon Dioxide 20 mEq/l L mEq/l (22-31) Anion Gap 11 mEq/L mEq/L (8-16) BUN 12 mg/dL mg/dL (7-23) Creatinine 0.8 mg/dL mg/dL (0.7-1.3) Estimated GFR > 60 Glucose 82 mg/dL mg/dL (70-100) Calcium 8.8 mg/dL mg/dL (8.5-10.4) Total Bilirubin 1.0 mg/dL mg/dL (0.1-1.4) Conjugated Bilirubin 0.5 mg/dL mg/dL (0.0-0.5) Unconjugated Bilirubin 0.5 mg/dL mg/dL (0.0-1.1) AST 31 IU/L IU/L (17-59) ALT 65 IU/L IU/L (21-72) Alkaline Phosphatase 191 IU/L H IU/L (38-126) Troponin I < 0.012 ng/mL ng/mL (0.000-0.034) Total Protein 6.3 g/dL g/dL (6.3-8.2) Albumin 3.6 g/dL g/dL (3.5-5.0) Lipase 491 IU/L H IU/L (23-300) Stool Occult Bld Scrn NEGATIVE (NEGATIVE) 12/16/16 15:28 WBC 9.65 10^3/uL H 10^3/uL (3.80-9.50) RBC 3.72 10^6/uL L 10^6/uL (4.40-6.38) Hgb 12.2 g/dL L g/dL (13.7-17.5) Hct 35.4 % L % (40.0-51.0) MCV 95.2 fL fL (81.5-99.8) MCH 32.8 pg pg (27.9-34.1) MCHC 34.5 g/dL g/dL (32.4-36.7) RDW 15.6 % H % (11.5-15.2) Plt Count 390 10^3/uL D 10^3/uL (150-400) MPV 8.5 fL L fL (8.7-11.7) Neut % (Auto) 68.0 % % (39.3-74.2) Lymph % (Auto) 19.6 % % (15.0-45.0) [place] % (Auto) 8.1 % % (4.5-13.0) Eos % (Auto) 1.9 % % (0.6-7.6) Baso % (Auto) 0.2 % L % (0.3-1.7) Nucleat RBC Rel Count 0.0 % % (0.0-0.2) Absolute Neuts (auto) 6.57 10^3/uL H 10^3/uL (1.70-6.50) Absolute Lymphs (auto) 1.89 10^3/uL 10^3/uL (1.00-3.00) Absolute Monos (auto) 0.78 10^3/uL 10^3/uL (0.30-0.80) Absolute Eos (auto) 0.18 10^3/uL 10^3/uL (0.03-0.40) Absolute Basos (auto) 0.02 10^3/uL 10^3/uL (0.02-0.10) Absolute Nucleated RBC 0.00 10^3/uL 10^3/uL (0-0.01) Immature Gran % 2.2 % H % (0.0-1.1) Immature Gran # 0.21 10^3/uL H 10^3/uL (0.00-0.10) PT INR Sodium Potassium Chloride Carbon Dioxide Anion Gap BUN Creatinine Estimated GFR Glucose Calcium Total Bilirubin Conjugated Bilirubin Unconjugated Bilirubin AST ALT Alkaline Phosphatase Troponin I Total Protein Albumin Lipase Stool Occult Bld Scrn Medications Given: Diphenhydramine HCl (Benadryl) 25 - 50 mg PO Q6HRS PRN PRN Reason: Itching Stop: 06/14/17 23:26 Last Admin: 12/17/16 00:30 Dose: 50 mg Sodium Chloride (Ns) 1,000 mls @ 75 mls/hr IV CONT NATHALIE Stop: 06/14/17 23:29 Last Admin: 12/17/16 00:32 Dose: 1,000 mls Discontinued Medications Acetaminophen (Tylenol) 500 mg PO EDNOW ONE Stop: 12/16/16 18:23 Last Admin: 12/16/16 18:29 Dose: 500 mg Acetaminophen (Tylenol) 500 mg PO EDNOW ONE Stop: 12/16/16 22:37 Last Admin: 12/16/16 22:45 Dose: 500 mg Diphenhydramine HCl (Benadryl Injection) 25 mg IVP EDNOW ONE Stop: 12/16/16 15:52 Last Admin: 12/16/16 16:34 Dose: 25 mg Methocarbamol (Robaxin) 750 mg PO EDNOW ONE Stop: 12/16/16 19:33 Last Admin: 12/16/16 20:04 Dose: 750 mg Morphine Sulfate (Ms Contin/Oramorph) 15 mg PO ONCE ONE Stop: 12/16/16 19:33 Last Admin: 12/16/16 20:04 Dose: 15 mg Oxycodone HCl (Oxycodone Ir) 5 mg PO EDNOW ONE Stop: 12/16/16 18:23 Last Admin: 12/16/16 18:29 Dose: 5 mg Oxycodone HCl (Oxycodone Ir) 10 mg PO EDNOW ONE Stop: 12/16/16 22:37 Last Admin: 12/16/16 22:45 Dose: 10 mg Warfarin Sodium (Coumadin) 10 mg PO EDNOW ONE Stop: 12/16/16 22:38 Last Admin: 12/16/16 22:45 Dose: 10 mg General Time Seen by Provider: 12/16/16 15:21 Initial Vital Signs: Initial Vital Signs Temperature (C) 36.7 C 12/16/16 14:52 Heart Rate 63 12/16/16 14:52 Respiratory Rate 16 12/16/16 14:52 Blood Pressure 122/63 H 12/16/16 14:52 O2 Sat (%) 97 12/16/16 14:52 O2 Delivery Mode Room Air Allergies/Adverse Reactions: erythromycin base [Erythromycin Base] Allergy (Mild, Verified 12/16/16 14:51) GI Home Medications: Medication Instructions Recorded Ferrous Sulfate [Ferrous Sulf 325 325 mg PO DAILY 11/05/16 MG (*)] Warfarin Sodium [Coumadin 5MG (*)] 5 mg PO MWF@11/05/16 Warfarin Sodium [Coumadin 5MG (*)] 10 mg PO SUTUTHSA@12/03/16 Tamsulosin HCl [Flomax 0.4 MG (*)] 0.4 mg PO DAILY #0 cap 12/10/16 oxyCODONE IR [Oxycodone Ir (*)] 5 - 10 mg PO Q4HRS PRN tab 12/10/16 Acetaminophen [Tylenol ES 500 mg 1,000 mg PO BID@,21 12/13/16 (*)] Bisacodyl [Dulcolax] 10 mg RC DAILY PRN 12/13/16 Diazepam [Valium 5 MG (*)] 5 mg PO HS PRN 12/13/16 Herbals/Supplements -Info Only 1 ea PO DAILY 12/13/16 Methocarbamol [Robaxin 750 mg (*)] 750 mg PO Q6H PRN 12/13/16 Sennosides/Docusate Sodium 2 each PO DAILY 12/13/16 [Senna-S Tablet] Sod Phos,M-B/Na Phos,Di-Ba [Fleet 266 ml RC PRN PRN 12/13/16 Enema] morphINE SR [Ms Contin/Oramorph 15 15 - 30 mg PO BID 12/13/16 mg (*)] Departure - Departure Disposition: [facility] Acute Clinical Impression: Rash, Dizziness, Shortness of breath, Fusion of spine of lumbar region Dyspnea Qualifiers: Dyspnea type: unspecified Qualified Code(s): R06.00 - Dyspnea, unspecified Condition: Good Report Scribed for: Humaira Moon Report Scribed by: Bharati Bah Date of Report: 12/16/16 Time of Report: 17:11
[2016-12-16 15:53] LABS: % IMMATURE GRANULYOCYTES 2.2 % (0.0-1.1); ABSOLUTE IMMATURE GRANULOCYTES 0.21 10^3/uL (0.00-0.10); ADD DIFF? NO; ADD MORPH? NO; ADD SCAN? NO; ATYPICAL LYMPHOCYTE FLAG 10 (0-99); FRAGMENT RBC FLAG 0 (0-99); HEMATOCRIT 35.4 % (40.0-51.0); HEMOGLOBIN 12.2 g/dL (13.7-17.5); LEFT SHIFT FLG 10 (0-99); LIPEMIA HEMOLYSIS FLAG 90 (0-99); MEAN CELL HEMOGLOBIN 32.8 pg (27.9-34.1); MEAN CELL HEMOGLOBIN CONCENTR. 34.5 g/dL (32.4-36.7); MEAN CELL VOLUME 95.2 fL (81.5-99.8); MEAN PLATELET VOLUME 8.5 fL (8.7-11.7); PLATELET CLUMPS FLAG 0 (0-99); PLATELET COUNT 390 10^3/uL (150-400); RED BLOOD CELL COUNT 3.72 10^6/uL (4.40-6.38); RED CELL DISTRIBUTION WIDTH 15.6 % (11.5-15.2)
[2016-12-16 16:03] LABS: ALANINE AMINOTRANSFERASE 65 IU/L (21-72); ALBUMIN 3.6 g/dL (3.5-5.0); ALKALINE PHOSPHATASE 191 IU/L (38-126); ANION GAP 11 mEq/L (8-16); ASPARTATE AMINOTRANSFERASE 31 IU/L (17-59); BILIRUBIN-CONJUGATED 0.5 mg/dL (0.0-0.5); BILIRUBIN-UNCONJUGATED 0.5 mg/dL (0.0-1.1); CALCIUM 8.8 mg/dL (8.5-10.4); CARBON DIOXIDE 20 mEq/l (22-31); CHLORIDE 105 mEq/L (97-110); CREATININE 0.8 mg/dL (0.7-1.3); GLOMERULAR FILTRATION RATE > 60; GLUCOSE 82 mg/dL (70-100); POTASSIUM 3.9 mEq/L (3.5-5.2); SODIUM 136 mEq/L (134-144); TOTAL PROTEIN 6.3 g/dL (6.3-8.2)
[2016-12-16 16:13] LABS: TROPONIN I < 0.012 ng/mL (0.000-0.034)
--- NOTE | 2016-12-16 16:34 | CPEKG ---
Heart Rate: 60 RR Interval: 1000 P-R Interval: 220 QRSD Interval: 94 QT Interval: 448 QTC Interval: 448 P Lamont: 81 QRS Lamont: 76 T Wave Lamont: 268 EKG Severity - ABNORMAL ECG - EKG Impression: SINUS RHYTHM EKG Impression: FIRST DEGREE AV BLOCK EKG Impression: PROBABLE LEFT ATRIAL ABNORMALITY EKG Impression: LATERAL INFARCT, AGE INDETERMINATE EKG Impression: ABNORMAL T, CONSIDER ISCHEMIA, DIFFUSE LEADS Electronically Signed By: Humaira Moon 16-Dec-2016 23:54:48
[2016-12-16 16:55] LABS: INR 1.79 (0.83-1.16); PROTIME(PATIENT) 20.9 SEC (12.0-15.0)
[2016-12-16] MEDS ORDERED: oxyCODONE IR 5 MG TAB PO ONE ×2 (18:22→22:36)
[2016-12-16] MEDS ORDERED: ACETAMINOPHEN 500 MG TAB PO ONE ×2 (18:22→22:36)
[2016-12-16] MEDS ORDERED: morphINE SR 15 MG TAB PO ONE (19:32)
[2016-12-16] MEDS ORDERED: METHOCARBAMOL 750 MG TAB PO ONE (19:32)
[2016-12-16] MEDS ORDERED: WARFARIN SODIUM 5 MG TAB PO ONE (22:37)
[2016-12-16] MEDS ORDERED: HYDROCODONE/APAP 5/325 TAB PO PRN (23:27)
[2016-12-16] MEDS ORDERED: HYDROmorphONE/DILAUDID 1 MG/ML INJ IVP PRN (23:27)
[2016-12-16] MEDS ORDERED: LORazepam 0.5 MG TAB PO PRN (23:27)
[2016-12-16] MEDS ORDERED: ONDANSETRON 4 MG/2 ML VIAL IVP PRN (23:27)
[2016-12-16] MEDS ORDERED: NS 1,000 ML IV SCH (23:30)
[2016-12-17] MEDS: diphenhydrAMINE 25 MG CAP PO PRN ×3 (00:30→22:28)
[2016-12-17] MEDS: oxyCODONE IR 5 MG TAB PO PRN ×2 (01:40→06:03)
[2016-12-17] MEDS: METHOCARBAMOL 750 MG TAB PO SCH ×5 (01:40→21:39)
--- NOTE | 2016-12-17 05:35 | GHP ---
[f rep st] HISTORY AND PHYSICAL DATE OF ADMISSION: 12/16/2016 SOURCE: Patient provides history, appears reliable. His electronic medical record was also reviewed . CHIEF COMPLAINT: Shortness of breath and generalized weakness. HISTORY OF PRESENT ILLNESS: This is a very pleasant 61-year-old gentleman known to our service with recent hospitalization following a lumbosacral fusion. Patient underwent procedure earlier in the [facility] on December 03. He was discharged on the . He went home and stayed with his for recove ry. However, he does live at altitude greater than 8000 feet and was finding that he had increasing shortness of breath. He returned to the hospital on 12/13/2016 with shortness of breath and he was f ound to be significantly hypoxic. Patient required supplemental oxygen which was arranged for him at home on discharge. Patient had oxygen tanks. In addition, he was paying [id number] for his oxyg en concentrator. However, he was finding that he continued to have significant shortness of breath, lightheadedness with presyncopal episode particularly with positional changes, and generalized weakne ss. Patient has a walker at home and has been ambulating with minimal assistance. He has been havin g fairly good control of his chronic pain with multiple medications. Patient denies any associated c hest pain, palpitations, cough, fevers. He does endorse some chills in the last few days since disch arge last day. Patient also has been having persistent bilateral lower extremity edema related to hi s DVT on the right. REVIEW OF SYSTEMS: GENERAL: Patient denies any fevers, positive chills, no sweats. SKIN: Patient does report a diffuse rash that developed during last hospital stay, has improved a little bit with B enadryl. No open sores reported. ENT: Patient denies any scratchy throat or swelling. He denies a ny rhinorrhea. EYES: Patient does report intermittent episodes of nystagmus. He states that since his last discharge, he has noted increased frequency and length of episodes which he previously exper ienced only intermittently. CV: Patient denies any acute chest pain, palpitations. RESPIRATORY: P ositive for dyspnea on exertion. No cough. GI: No nausea, vomiting, abdominal pain, or diarrhea. : No dysuria or hematuria. MUSCULOSKELETAL: Patient with persistent back pain at surgical site. He denies any myalgias. NEURO: Patient denies any headache. He does have complaints of numbness a nd tingling in the right anterior proximal leg since his surgery, that has remained unchanged. He de nies any focal weakness. PSYCH: Patient reports a little bit of depressed mood with multiple hospit al stays, but denies any SI or HI. No anxiety. ALLERGIES: Erythromycin. HOME MEDICATIONS: Oxy IR 5-10 mg p.o. q.4 hours p.r.n.; morphine SR 15-30 mg p.o. b.i.d.; Coumadin 1 0 mg p.o. Wednesday, Wednesday, , Wednesday at 9, and 5 mg Wednesday, Wednesday, Wednesday at 9; tamsulos in 0.4 mg p.o. daily; Fleet enema p.r.n.; senna 2 tabs p.o. daily; Robaxin 750 mg p.o. q.6 hours p.r. n. which patient reports he takes scheduled; ferrous sulfate 325 mg p.o. daily; valium 5 mg p.o. h.s. p.r.n.; Dulcolax 10 mg daily p.r.n.; Tylenol 1000 mg p.o. b.i.d. at 1100 and 2100. PAST MEDICAL HISTORY: Significant for CAD. 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 Chronic back pain with recent surgery. Valvular heart disease. AAA. BPH. PAST SURGICAL HISTORY: Significant for L1-S1 fusion with history of previous spinal fusion. CABG. IVC filter placement. Aortic valve repair and aortic graft. FAMILY HISTORY: Significant for seizure disorder. SOCIAL HISTORY: Patient lives in [place] at greater than 8000 feet in elevation. He lives with hi s . He does not smoke, drink, or do drugs. CODE STATUS: Full. Patient desires his to act as proxy if needed. PHYSICAL EXAM: VITALS: On arrival, blood pressure 122/63, heart rate 63, respiratory rate 16, O2 sa t was 97% on 2 L nasal cannula. Current vitals: Blood pressure 102/68, heart rate is 65, respirator y rate 16, O2 sat is 96% on 2 L by nasal cannula, temperature is 36.7. GENERAL: No acute distress. Pleasant 61-year-old gentleman who is lying quietly in bed, awake, slightly somnolent, but pleasant, cooperative. HEAD: Normocephalic, atraumatic. EYES: Extraocular muscles grossly intact. Pupils are equal, round, nearly pinpoint, and symmetric. No scleral icterus or conjunctival injection. ENT : Mucous membranes appear slightly dry. No nasal discharge. NECK: Supple. Trachea midline. CV: Bradycardic in the 60s with regular rhythm. No murmurs, rubs, or gallops appreciated. RESPIRATORY: Lungs clear to auscultation bilaterally. No wheezes, rales, or rhonchi. ABDOMEN: Positive bowel sounds. Soft, obese abdomen, nontender to palpation. No rebound, guarding, or masses appreciated. : No suprapubic tenderness to palpation. No Gray catheter in place. EXTREMITIES: Patient with some decreased strength in the bilateral lower extremities. He has 2 to 3+ pitting edema bilateral l ower legs. On the right side, edema slightly more so than the left. Strength in upper extremities s ymmetric. NEURO: Grossly nonfocal. No facial drooping. Moves all extremities. Patient reports so me decreased sensation in the right proximal leg. PSYCH: Patient's thought process, content, and qu estions are appropriate. He is cooperative and pleasant, in good spirits. LABORATORY STUDIES: WBC 9.65, H and H were 12.2 and 35.4, MCV of 95.2, platelet count is 390, neutro don percent 68. PT is 20.9, INR is 1.79. Sodium is 136, potassium 3.9, CO2 is 20, anion gap 11, cr eatinine 0.8, GFR greater than 60, glucose 82, calcium 8.8, total bili 1.0, ALT 65, AST 31, alk phos 191. Troponin less than 0.012. Total protein 6.3, albumin is 3.6, lipase is 4.91. Occult stool scr een is negative. IMAGING DATA: EKG: Reviewed myself, showing normal sinus rhythm, first-degree AV block, Q-waves in the lateral leads, T-wave inversion in inferior leads. QTc is 448. Compared to previous EKG from , no significant change. Chest x-ray: Image report reviewed myself, negative for acute changes. MRI of the brain negative for acute infarct, minimal periventricular and deep hemispheric white matte r change. Scattered foci of low signal intensity suggesting hemosiderin deposition. CT head without contrast is normal, mild atherosclerosis. Lumbar spine MRI without contrast: Postsurgical changes. Fusion laminectomy L1 through S1. Complex fluid collection posterior to the laminectomy site which more likely hematoma and seroma, broad-base d annular bulge with complex appearance, combination postsurgical change/granulation response causing moderate central spinal canal, moderate severe bilateral foraminal narrowing, right greater than lef t at the L2-3 level. ASSESSMENT AND PLAN: A pleasant 61-year-old gentleman status post lumbosacral laminectomy in the las t several weeks, who presents back from his home at altitude with complaints of dyspnea, hypoxia, gen eralized weakness, and lightheadedness and presyncope. 1. Hypoxia has improved since returning to altitude and supplemental oxygen. Patient developed sign ificant difficulties when at home, limiting his ability to continue with appropriate recovery plan fo r following his lumbosacral fusion. At this point, discussed with the patient that it is not safe an d not ideal for him to return home given his development of significant hypoxia down to the 80s, whic h will prohibit optimal recovery time following surgery. Physical Therapy/Occupational Therapy have been consulted. Case Management also consulted to assist with consideration for placement. 2. Failure to thrive, multifactorial but primarily related to his hypoxia. 3. Debility due to postoperative changes and chronic pain. Continue with patient's current regimen. Physical therapy/occupational therapy as noted above. 4. Status post lumbosacral fusion. Patient with some likely post surgical changes on imaging. Phys ical Therapy/Occupational Therapy have been consulted. Consider neurosurgical consultation if patien t showing any concerning acute signs. 5. Rash. Patient reports this has been ongoing for several days at this time. Continue with Benadr yl p.r.n. Does not appear to be having an anaphylactic reaction. No recent medication changes. 6. Chronic back pain. Continue with pain management as noted above. 7. Deep vein thrombosis/pulmonary embolism, status post inferior vena cava filter. Continue with Co umadin, which is currently subtherapeutic on INR. Pharmacy consultation to assist with dosing. 8. Coronary artery disease. Patient not currently on a statin. Can follow up with primary care pro vider. 9. Benign prostatic hypertrophy. Continue tamsulosin. 10. Chronic narcotic dependence. Resume patient's home medications given his postoperative status a nd current acute pain needs. 11. Fluid, electrolyte, nutrition. Continue with IV fluids overnight. Diet advanced as tolerated t o cardiac. Electrolyte replacement if needed. 12. Prophylaxis. SCDs, on Coumadin, titrating with assist of Pharmacy as noted above. 13. Code status is full. Patient without advance directives. Desires his to act as proxy if n eeded. 14. Disposition. Patient admitted to inpatient status on the medical floor. Given several attempts to discharge the patient home, it is unlikely that he will be successful given his acute change in r espiratory status and development of hypoxia. Patient will require additional therapy support and ox ygen supplementation at a lower altitude. At this time, he is amenable to consider placement in a [facility] nursing facility, and so will consult Case Management to assist at this time. /[id number]/MODL
[2016-12-17 06:02] LABS: % IMMATURE GRANULYOCYTES 1.8 % (0.0-1.1); ABSOLUTE IMMATURE GRANULOCYTES 0.12 10^3/uL (0.00-0.10); ADD DIFF? NO; ADD MORPH? NO; ADD SCAN? NO; ATYPICAL LYMPHOCYTE FLAG 0 (0-99); FRAGMENT RBC FLAG 0 (0-99); HEMATOCRIT 32.1 % (40.0-51.0); HEMOGLOBIN 10.8 g/dL (13.7-17.5); LEFT SHIFT FLG 10 (0-99); LIPEMIA HEMOLYSIS FLAG 80 (0-99); MEAN CELL HEMOGLOBIN 32.5 pg (27.9-34.1); MEAN CELL HEMOGLOBIN CONCENTR. 33.6 g/dL (32.4-36.7); MEAN CELL VOLUME 96.7 fL (81.5-99.8); MEAN PLATELET VOLUME 8.7 fL (8.7-11.7); PLATELET CLUMPS FLAG 0 (0-99); PLATELET COUNT 348 10^3/uL (150-400); RED BLOOD CELL COUNT 3.32 10^6/uL (4.40-6.38); RED CELL DISTRIBUTION WIDTH 15.5 % (11.5-15.2)
[2016-12-17] MEDS: ACETAMINOPHEN 325 MG TAB PO PRN (06:04)
[2016-12-17 06:18] LABS: ANION GAP 8 mEq/L (8-16); CALCIUM 8.4 mg/dL (8.5-10.4); CARBON DIOXIDE 21 mEq/l (22-31); CHLORIDE 108 mEq/L (97-110); CREATININE 0.9 mg/dL (0.7-1.3); GLOMERULAR FILTRATION RATE > 60; GLUCOSE 79 mg/dL (70-100); POTASSIUM 4.4 mEq/L (3.5-5.2); SODIUM 137 mEq/L (134-144)
[2016-12-17 07:13] LABS: INR 1.92 (0.83-1.16); PROTIME(PATIENT) 22.1 SEC (12.0-15.0)
[2016-12-17 07:14] LABS: APTT 43.3 SEC (23.0-38.0)
--- NOTE | 2016-12-17 08:51 | PDMN ---
Medical Necessity Medical necessity: GRG systemic condition adult failure to thrive- 3 days- pt with hx of lumbosacral fusion ( 2 weeks ago) lives at altitude ( 8000ft) with increased SOB, hypoxia ( 80's), weakness, lightheadedness and presyncope - on chronic anticoag. ( Coumadin) for PE, DVT, IVC filter, chronic back pain, hx CABG, Pt will req. further PT, OT following above sgy, O2, probable placement at lower elevation.
[2016-12-17] MEDS: morphINE SR 15 MG TAB PO SCH ×2 (09:35→21:39)
[2016-12-17] MEDS ORDERED: BISACODYL 10 MG SUPP PR PRN (10:34)
[2016-12-17] MEDS ORDERED: POLYETHYLENE GLYCOL 3350 17 GM PKT PO PRN (10:34)
[2016-12-17] MEDS ORDERED: DIAZEPAM 5 MG TAB PO PRN (10:34)
[2016-12-17] MEDS ORDERED: MAGNESIUM HYDROXIDE 30 ML UDCUP PO PRN (10:34)
--- NOTE | 2016-12-17 10:42 | HOSPPROG ---
Hospitalist Progress Note Assessment/Plan: # R leg weakness/pain s/p lumbar reconstruction/fusion surgery- discussed with Dr Rodriguez - check L-spine CT - gabapentin - PT/OT - morphine/oxy/robaxin # recent DVT (2nd episode) - cont warfarin - IVC filter in place - consider removing # reported hypoxia/dizziness at altitude - on RA here # hx AVR, aortic graft d/t aneurysm, CABGx2 - consider statin # bph - flomax # post-op anemia - follow daily for now 35 minutes direct face to face patient care time spent from 10:05am-10:40am Objective: Vital Signs Temp Pulse Resp BP Pulse Ox 36.5 C 64 16 95/63 L 97 12/17/16 07:29 12/17/16 07:29 12/17/16 07:29 12/17/16 07:29 12/17/16 07:29 Laboratory Results 12/17/16 04:12 12/17/16 04:12 12/16/16 12/17/16 12/18/16 05:59 05:59 05:59 Intake Total 408 Balance 408 PT 22.1 SEC (12.0-15.0) H 12/17/16 04:12 INR 1.92 (0.83-1.16) H 12/17/16 04:12 ICD10 Worksheet Patient Problems: Problems Problem Status Onset Dizziness Acute Dyspnea Acute Fusion of spine of lumbar region Acute Rash Acute Shortness of breath Acute Anemia Acute Hypoxemia Acute
--- NOTE | 2016-12-17 11:51 | GCON ---
[f rep st] CONSULTATION NEUROSURGICAL CONSULTATION. CHIEF COMPLAINT: Fatigue. HISTORY OF PRESENT ILLNESS: The patient is a 61-year-old male who previously underwent an L1-S1 instrumentation and fusion with an L3 wedge osteotomy. He did have high intraoperative blood loss due to the long surgery and the fact that he was on anticoagulation prior to surgery. He was recently discharged, but upon returning to [facility], had continued fatigue and shortness of breath with exertion. He was recently admitted and was not found to have a pulmonary embolus. After discharge from the hospital again, he had continued shortness of breath and returned to the hospital. He currently complains of general fatigue. He does have some shortness of breath with exertion. He continues to have some numbness in his right anterior thigh. He does feel like his right quad and psoas is generally weak. He is not having worsening low back pain. He denies any fevers, chills, left leg pain, left leg weakness, ataxia, or bowel or bladder problems. PAST MEDICAL HISTORY: 1. Coronary artery disease. 2. PE and DVT for which he is on Coumadin. 3. Status post IVC filter placement. 4. Valvular heart disease. 5. AAA. 6. BPH. MEDICATIONS: Prior to admission are oxycodone, MS Contin, Coumadin, tamsulosin , senna, Robaxin, iron sulfate, Valium, Dulcolax, Tylenol. PAST SURGICAL HISTORY: 1. L1-S1 fusion. 2. CABG. 3. IVC filter placement. 4. Aortic valve repair and aortic graft. ALLERGIES: Erythromycin. FAMILY HISTORY: Patient has no family history of spinal problems. SOCIAL HISTORY: Patient is and lives at [facility] at 8000 feet. He does not smoke. He denies drinking or drug use. REVIEW OF SYSTEMS: Negative. PHYSICAL EXAM: GENERAL: The patient is a 61-year-old male lying in bed, in no apparent distress. HEAD, EARS, EYES, NOSE AND THROAT: Negative for drainage. EXTREMITIES: [place], warm and dry. NEUROLOGICAL: The patient is awake, alert, oriented x4. Pupils equal, round, reactive to light. Extraocular motions are intact. There is no evidence of facial droop. Tongue and uvula are midline. Spinal accessory muscles are intact. His motor strength is 5/5 in his arms and legs with the exception of his right psoas and right quad, which is approximately 4/5. Sensation is grossly intact to light touch with the exception of his right anterior thigh, which is dull to light touch. Deep tendon reflexes are 1+ out of 4 throughout. DIAGNOSTIC STUDIES: An MRI of the lumbar spine from [facility] on 12/16/2016 shows postoperative changes from L1-S1 decompression and fusion. There is a small right paraspinal fluid collection extending from approximately L2-L4. This produces mild to moderate compression of the thecal sac but does cause some right-sided L2-3 foraminal stenosis. IMPRESSION: This is a 61-year-old male who is approximately 1 month out from L1 -S1 instrumentation and fusion and a wedge osteotomy. He is neurologically stable, but does have some right quad and psoas weakness that may be related to his right L2-3 paraspinal fluid collection. He is neurologically stable. PLAN: All of the above discussed in detail with the patient. The patient was also seen and examined by Dr. Collins. At this point, I will have him continue with physical therapy and occupational therapy. We will start him on Neurontin and check at CT scan of his lumbar spine. If he fails to improve or has worsening symptoms, we can have Interventional Radiology consider drain placement of his right-sided paraspinal lumbar fluid collection. He has had some postoperative constipation and he will be aggressive with his bowel protocol. I will make further treatment recommendations while he is here at the hospital if his condition changes. He will most likely need SNF rehabilitation since he has difficulty returning home because of the altitude. Please call with any neurological changes. /[id number]/MODL MTDD
[2016-12-17] MEDS: ACETAMINOPHEN 500 MG TAB PO SCH ×2 (12:23→18:00)
--- NOTE | 2016-12-17 13:57 | ASMTCMCOM ---
OPAL Note CM Note Notes: Spoke w/pt and (via phone) re; dc poc. Pt not functioning at home post op, likely will need SNF, referral faxed to [facility] w/f. Date Signed: 12/17/2016 01:56 PM Electronically Signed By:Amy Crane RN
[2016-12-17] MEDS ORDERED: WARFARIN SODIUM 5 MG TAB PO ONE (16:00)
[2016-12-17] MEDS ORDERED: WARFARIN SODIUM 5 MG TAB PO SCH (21:00)
[2016-12-17] MEDS: GABAPENTIN 100 MG CAP PO SCH (21:39)
[2016-12-17] MEDS: SENNOSIDES/DOCUSATE SODIUM TAB PO SCH (21:39)
[2016-12-17] MEDS: FERROUS SULFATE 325 MG TAB PO SCH (21:39)
[2016-12-17] MEDS ORDERED: FERROUS SULFATE 325 MG TAB PO ONE (22:38)
[2016-12-18] MEDS: oxyCODONE IR 5 MG TAB PO PRN ×2 (04:29→21:41)
[2016-12-18 05:00] LABS: % IMMATURE GRANULYOCYTES 1.4 % (0.0-1.1); ABSOLUTE IMMATURE GRANULOCYTES 0.07 10^3/uL (0.00-0.10); ADD DIFF? NO; ADD MORPH? NO; ADD SCAN? NO; ATYPICAL LYMPHOCYTE FLAG 10 (0-99); FRAGMENT RBC FLAG 0 (0-99); HEMATOCRIT 34.3 % (40.0-51.0); HEMOGLOBIN 11.5 g/dL (13.7-17.5); LEFT SHIFT FLG 10 (0-99); LIPEMIA HEMOLYSIS FLAG 80 (0-99); MEAN CELL HEMOGLOBIN 31.6 pg (27.9-34.1); MEAN CELL HEMOGLOBIN CONCENTR. 33.5 g/dL (32.4-36.7); MEAN CELL VOLUME 94.2 fL (81.5-99.8); MEAN PLATELET VOLUME 8.4 fL (8.7-11.7); PLATELET CLUMPS FLAG 0 (0-99); PLATELET COUNT 337 10^3/uL (150-400); RED BLOOD CELL COUNT 3.64 10^6/uL (4.40-6.38); RED CELL DISTRIBUTION WIDTH 14.5 % (11.5-15.2)
[2016-12-18 05:08] LABS: INR 2.01 (0.83-1.16); PROTIME(PATIENT) 22.9 SEC (12.0-15.0)
[2016-12-18] MEDS: METHOCARBAMOL 750 MG TAB PO SCH ×4 (05:11→20:24)
[2016-12-18 05:18] LABS: CALCIUM 9.2 mg/dL (8.5-10.4); CARBON DIOXIDE 23 mEq/l (22-31); CHLORIDE 107 mEq/L (97-110); CREATININE 0.8 mg/dL (0.7-1.3); GLOMERULAR FILTRATION RATE > 60; GLUCOSE 89 mg/dL (70-100); POTASSIUM 4.4 mEq/L (3.5-5.2)
--- NOTE | 2016-12-18 08:18 | NEUSURGPN ---
Assessment/Plan: 61 y/o male s/p L1-S1 PSF with L3 wedge osteotomy readmitted with SOB and anemia and right psoas/quad weakness. - Lumbar CT completed, demonstrates a posterior protusion at the L2/3 level. Based on his weakness and his imaging findings have recommended a Exploration/ revision/reposition of hardware. Risks, benefits and alternative discussed. Consents signed and questions answered. -Patient was seen by Dr. Rodriguez and myself -Patient marked - Appreciate medicine work up and treatment. They will work on reversing the patient's INR in prep for surgery -Optimize pain management -Please notify NS with any change in neuro/motor exam Subjective: right leg weakness. Objective: NAD A&Ox3 MAEx4 5/5 throughout other than right quad/IL 4/5 - Physician Patient Seen by : [facility] Physical Exam - Vitals, I&O, Labs I and O 12/17/16 12/18/16 12/19/16 05:59 05:59 05:59 Intake Total 1208 Balance 1208 Weight 98.3 kg Intake: Oral (ml) 800 IV Infused (ml) 408 Ns 1,000 ml @ 75 mls/hr 408 IV CONT NATHALIE Rx#: [id number] Other: Intake Quantity Yes Sufficient Number of Voids Toilet 1 1 Number of Stools Toilet 1 Vital Signs Temp Pulse Resp BP Pulse Ox 36.8 C 64 16 116/70 92 12/18/16 04:24 12/18/16 04:24 12/18/16 04:24 12/18/16 04:24 12/18/16 04:24 Laboratory Results 12/18/16 04:27 12/18/16 04:27 ICD10 Worksheet Patient Problems: Problems Problem Status Onset Dizziness Acute Dyspnea Acute Fusion of spine of lumbar region Acute Rash Acute Shortness of breath Acute Anemia Acute Hypoxemia Acute
[2016-12-18] MEDS: morphINE SR 15 MG TAB PO SCH ×2 (09:41→20:24)
[2016-12-18] MEDS: ACETAMINOPHEN 500 MG TAB PO SCH ×3 (09:41→18:24)
[2016-12-18] MEDS: GABAPENTIN 100 MG CAP PO SCH ×3 (09:42→21:41)
[2016-12-18] MEDS: SENNOSIDES/DOCUSATE SODIUM TAB PO SCH ×2 (09:42→20:24)
[2016-12-18] MEDS: TAMSULOSIN HCL 0.4 MG CAP PO SCH (09:43)
[2016-12-18] MEDS ORDERED: BUPIVACAINE 0.25% 30 ML SDV ONE (10:25)
[2016-12-18] MEDS ORDERED: BACITRACIN 50,000 UNITS/10 ML SYR IRR ONE ×2 (10:26→16:17)
[2016-12-18] MEDS ORDERED: THROMBIN (BOVINE) 5,000 UNIT VIAL TP ONE (10:26)
[2016-12-18] MEDS ORDERED: PHYTONADIONE 2.5 MG/2.5 ML ORAL UDL PO ONE (11:14)
[2016-12-18] MEDS ORDERED: PHYTONADIONE 1 MG in NS 50 ML IV ONE (11:32)
--- NOTE | 2016-12-18 12:28 | HOSPPROG ---
Hospitalist Progress Note Assessment/Plan: # R leg weakness/pain s/p lumbar reconstruction/fusion surgery - CT with graft material likely causing radiculopathy - to the OR today - will give vit k and FFP; goal INR<1.5 - gabapentin - PT/OT - morphine/oxy/robaxin # recent DVT (2nd episode) - reverse AC as above - IVC filter in place # hypoNa - check urine studies and recheck tomorrow # reported hypoxia/dizziness at altitude - on RA here # hx AVR, aortic graft d/t aneurysm, CABGx2 - consider statin # bph - flomax # post-op anemia - follow daily for now Subjective: pain and weakness persistent Objective: Vital Signs Temp Pulse Resp BP Pulse Ox 36.7 C 62 12 122/69 H 91 L 12/18/16 08:00 12/18/16 08:00 12/18/16 08:00 12/18/16 08:00 12/18/16 08:00 Laboratory Results 12/18/16 04:27 12/18/16 04:27 12/17/16 12/18/16 12/19/16 05:59 05:59 05:59 Intake Total 1208 Balance 1208 PT 22.9 SEC (12.0-15.0) H 12/18/16 04:27 INR 2.01 (0.83-1.16) H 12/18/16 04:[address] Michael FARFAN reviewed - Physical Exam Constitutional: no apparent distress, appears nourished Cardiovascular: regular rate and rhythym, systolic murmur, No irregularly irregular, No diastolic murmur Respiratory: no respiratory distress, no rales or rhonchi, clear to auscultation Gastrointestinal: normoactive bowel sounds, soft, non-tender abdomen, no palpable masses ICD10 Worksheet Patient Problems: Problems Problem Status Onset Fusion of spine of lumbar region Acute Anemia Acute Dyspnea Acute Hypoxemia Acute Rash Acute Dizziness Acute Shortness of breath Acute
[2016-12-18] MEDS ORDERED: ceFAZolin 2 GM/DEXTROSE 100 ML IV ONE ×2 (13:04→16:23)
[2016-12-18] MEDS ORDERED: ceFAZolin 2 GM/SWFI 2 GM/20 ML SYR IVP ONE ×2 (13:30→17:00)
--- NOTE | 2016-12-18 14:17 | ASMTCMCOM ---
OPAL Note OPAL Note Notes: D/w , have sx today, may be able to dc tomorrow. Notified Christal at [facility], states ins auth came through, also notified Brandee, OPAL w/f. Date Signed: 12/18/2016 02:16 PM Electronically Signed By:Amy Crane RN
[2016-12-18] MEDS ORDERED: MIDAZOLAM 2 MG/2 ML VIAL IVP ONE (14:45)
[2016-12-18] MEDS ORDERED: MIDAZOLAM 2 MG/2 ML VIAL ONE (14:45)
--- NOTE | 2016-12-18 14:47 | PDANEPAE ---
ANE Past Medical History - Cardiovascular History Hx Hypertension: No Hx Arrhythmias: No Hx Chest Pain: No Hx Coronary Artery / Peripheral Vascular Disease: Yes Hx CHF / Valvular Disease: Yes Hx Palpitations: No Cardiovascular History Comment: RECENT DVT FEMORAL 07/2016. DVT/PE 2008. HYPERLIPIDEMIA - Pulmonary History Hx COPD: No Hx Asthma/Reactive Airway Disease: No Hx Recent Upper Respiratory Infection: No Hx Oxygen in Use at Home: Yes O2 in Use at Home (L/minute): 3 Hx Sleep Apnea: Yes Sleep Apnea Screening Result - Last Documented: Positive Pulmonary History Comment: PE 2008 - Neurologic History Hx Cerebrovascular Accident: No Hx Seizures: No Hx Dementia: No Neurologic History Comment: OCCAS TIAs. MIGRAINES RARE. FAMILY HX CVA - Endocrine History Hx Diabetes: No - Renal History Hx Renal Disorders: No - Liver History Hx Hepatic Disorders: No - Neurological & Psychiatric Hx Hx Neurological and Psychiatric Disorders: No - Cancer History Hx Cancer: No - Congenital Disorder History Hx Congenital Disorders: No - GI History Hx Gastrointestinal Disorders: No - Other Health History Other Health History: ANEMIA - IRON DEFICIENCY - Chronic Pain History Chronic Pain: Yes (BACK PAIN) - Surgical History Prior Surgeries: ANEURYSM REPAIR 07/2008. AVR-07/2008. CABG-07/2008. LUMBAR FUSION. VASECTOMY. WISDOM TEETH ANE Review of Systems Review of Systems: ANE Patient History - Allergies Allergies/Adverse Reactions: erythromycin base [Erythromycin Base] Allergy (Mild, Verified 12/16/16 14:51) GI - Home Medications Home Medications: Ferrous Sulfate [Ferrous Sulf 325 MG (*)] 325 mg PO HS 11/05/16 [Last Taken ] Warfarin Sodium [Coumadin 5MG (*)] 5 mg PO MWF@11/05/16 [Last Taken 12/14/16] Warfarin Sodium [Coumadin 5MG (*)] 10 mg PO SUTUTHSA@12/03/16 [Last Taken 10mg] Acetaminophen [Tylenol ES 500 mg (*)] 1,000 mg PO TID@929,,12/13/16 [Last Taken 12/16/16 18:00] Bisacodyl [Dulcolax] 10 mg RC DAILY PRN 12/13/16 [Last Taken 12/12/16] Diazepam [Valium 5 MG (*)] 5 mg PO HS PRN 12/13/16 [Last Taken 12/12/16 21:00] Herbals/Supplements -Info Only 1 ea PO DAILY 12/13/16 [Last Taken 12/13/16] Methocarbamol [Robaxin 750 mg (*)] 750 mg PO Q6H PRN 12/13/16 [Last Taken 20:00] Sennosides/Docusate Sodium [Senna-S Tablet] 2 each PO DAILY PRN 12/13/16 [Last Taken 12/13/16 09:00] Sod Phos,M-B/Na Phos,Di-Ba [Fleet Enema] 266 ml RC PRN PRN 12/13/16 [Last Taken 12/12/16] morphINE SR [Ms Contin/Oramorph 15 mg (*)] 15 - 30 mg PO BID 12/13/16 [Last Taken 12/16/16 20:00] Magnesium Hydroxide [Milk of Magnesia] 30 ml PO DAILY PRN 12/17/16 [Last Taken Unknown] - NPO status NPO Since - Liquids (Date): 12/18/16 NPO Since - Liquids (Time): 09:30 NPO Since - Solids (Date): 12/18/16 NPO Since - Solids (Time): 09:30 - Smoking Hx Smoking Status: Former smoker - Family Anes Hx Family Hx Anesthesia Complications: NEG ANE Labs/Vital Signs - Labs Result Diagrams: 12/18/16 04:27 12/18/16 04:27 - Vital Signs Blood Pressure: 112/69 Heart Rate: 65 Respiratory Rate: 96 O2 Sat (%): 94 Height: 185.42 cm Weight: 98.3 kg ANE Physical Exam - Airway Mallampati Score: Class 1 Mouth exam: normal dental/mouth exam, poor dentition - Pulmonary Pulmonary: no respiratory distress, no rales or rhonchi, clear to auscultation - Cardiovascular Cardiovascular: regular rate and rhythym - ASA Status ASA Status: III ANE Anesthesia Plan Anesthesia Plan: general endotracheal anesthesia
[2016-12-18 14:48] LABS: INR 1.79 (0.83-1.16); PROTIME(PATIENT) 20.9 SEC (12.0-15.0)
[2016-12-18] MEDS ORDERED: PROPOFOL/EMULSION 500 MG/50 ML BOTTLE IV ONE (14:55)
[2016-12-18] MEDS ORDERED: PROPOFOL 200 MG/20 ML VIAL ONE (14:55)
[2016-12-18] MEDS ORDERED: ROCURONIUM 50 MG/5 ML VIAL ONE (14:55)
[2016-12-18] MEDS ORDERED: DEXAMETHASONE 4 MG/ML VIAL ONE ×2 (14:55→15:10)
[2016-12-18] MEDS ORDERED: fentaNYL 100 MCG/2 ML INJ ONE ×2 (14:55→17:37)
[2016-12-18] MEDS ORDERED: LIDOCAINE 2% 5 ML SDV ONE (14:56)
[2016-12-18] MEDS ORDERED: KETAMINE 100 MG/10 ML SYR ONE (15:11)
[2016-12-18] MEDS ORDERED: ONDANSETRON 4 MG/2 ML VIAL ONE (16:21)
[2016-12-18] MEDS ORDERED: SURGIFLO MATRIX KIT WITH THROMBIN TP ONE (16:31)
[2016-12-18] MEDS ORDERED: PROMETHAZINE HCL 25 MG/ML INJ IVP PRN (16:45)
[2016-12-18] MEDS ORDERED: MEPERIDINE 25 MG/ML SYR IVP PRN (16:45)
[2016-12-18] MEDS ORDERED: ONDANSETRON 4 MG/2 ML VIAL IVP PRN (16:45)
[2016-12-18] MEDS ORDERED: NALOXONE HCL 0.4 MG/ML INJ IVP PRN (16:45)
[2016-12-18] MEDS ORDERED: LR 500 ML IV PRN (16:45)
[2016-12-18] MEDS ORDERED: ACETAMINOPHEN 500 MG TAB PO PRN (16:45)
[2016-12-18] MEDS ORDERED: OXYCODONE/APAP 5/325 TAB PO PRN (16:45)
[2016-12-18] MEDS: fentaNYL 100 MCG/2 ML INJ IVP PRN ×2 (17:38→17:48)
--- NOTE | 2016-12-18 17:43 | GOP ---
[f rep st] OPERATIVE REPORT DATE OF OPERATION: 12/18/2016 SURGEON: Josr Collins MD NEUROSURGEON: Josr Collins MD VALUE STREAM MANAGER: HANSEL Hwang ANESTHESIA: General endotracheal. 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 POSTOPERATIVE DIAGNOSIS: L3 radiculopathy secondary to migration of bone graft, status post prior de compression and fusion/pedicle subtraction osteotomy. PROCEDURE PERFORMED: 1. Removal of migrated bone graft, and redo L2-3 foraminotomy with decompression of L3 nerve root. 2. Use of intraoperative microscopy and fluoroscopy. FINDINGS: ESTIMATED BLOOD LOSS: 150 cc. INDICATIONS: The patient is a 61-year-old man who underwent an extensive decompression, stabilizatio n and realignment of his lumbar spine with a pedicle subtraction osteotomy approximately 2 weeks ago, and recently has had a severe L3 radiculopathy. The postoperative CT scan demonstrated migration of the autograft into the nerve root/foramina and he presents now for removal of the bone graft and rev ision of the foraminotomy. DESCRIPTION OF PROCEDURE: After informed consent was obtained, the patient was taken to the operatin g room and placed in the prone position on Ned table. The lumbosacral area was prepped and drape d in a sterile fashion. After fluoroscopic localization of the correct level, the subcutaneous and i ntramuscular tissues were infiltrated with local anesthesia. An approximately 2.5 cm area of the damián or incision was carefully opened with suture scissors and carried down to the fascial layer, which wa s also opened using suture scissors. This was carried down to the layer of the thecal sac, and the p rior blood clot was carefully dissected off the thecal sac. A Goodwin 4 was utilized in conjunction with intraoperative fluoroscopy to verify the correct level. Following this, the L3 nerve root was identified and the bone graft that was impinging on it was identified and carefully removed under hig h-power microscopy. A redo foraminotomy was also performed using the Kerrison rongeurs and angled cu rettes. Following this, the wound was copiously irrigated with antibiotic irrigation. Meticulous he mostasis was achieved. A drain was then placed, and the wound was closed in a layered fashion using interrupted Vicryl sutures followed by Steri-Strips on the skin. COMPLICATIONS: None. DISPOSITION: The patient was extubated and transferred to the recovery room in stable condition. /[id number]/MODL
--- NOTE | 2016-12-18 17:44 | POSTOPPROG ---
Post Op Note Date of Operation: 12/18/16 Surgeon: Josr Collins Motor Setter: HANSEL Ruiz MPARodri Anesthesia: GET(General Endotracheal) Pre-op Diagnosis: radiculopathy, lumbar stenosis Post-op Diagnosis: radiculopathy, lumbar stenosis Indication: radiculopathy, lumbar stenosis, leg weakness Procedure: Exploration of prior hardware L2/3 redo decompression Inf/Abcess present in the surg proc area at time of surgery?: No EBL: Minimal Drains: Ned HAMILTON Addendum - Addendum .: S: Denies nay pain, right leg pain has improved, also feels stronger O: NAD A&Ox3 MAEx4 5/5 and equal in BUE and BLE, except right IL/ham 5-/5. DEISY serosanginous A/P Exploration of prior hardware L2/3 redo decompression -DEISY bulb suction -Advance diet as tolerated -Optimize pain management -DVT prophx: TEDs, SCDs, okay to resume Lovenox and Coumadin tomorrow -Please notify NS with any change in neuro/motor exam
[2016-12-18 19:21] LABS: ANION GAP 11 mEq/L (8-16); SODIUM 141 mEq/L (134-144)
[2016-12-18] MEDS: FERROUS SULFATE 325 MG TAB PO SCH (20:24)
[2016-12-18] MEDS ORDERED: WARFARIN SODIUM 5 MG TAB PO SCH (21:00)
[2016-12-19 04:17] VITALS: TEMP 98.4
[2016-12-19] MEDS: ACETAMINOPHEN 325 MG TAB PO PRN ×2 (04:23→09:18)
[2016-12-19] MEDS: METHOCARBAMOL 750 MG TAB PO SCH ×2 (05:02→13:26)
[2016-12-19 05:34] LABS: % IMMATURE GRANULYOCYTES 0.5 % (0.0-1.1); ABSOLUTE IMMATURE GRANULOCYTES 0.04 10^3/uL (0.00-0.10); ADD DIFF? NO; ADD MORPH? NO; ADD SCAN? NO; ATYPICAL LYMPHOCYTE FLAG 0 (0-99); FRAGMENT RBC FLAG 0 (0-99); HEMATOCRIT 31.5 % (40.0-51.0); LEFT SHIFT FLG 0 (0-99); LIPEMIA HEMOLYSIS FLAG 90 (0-99); MEAN CELL HEMOGLOBIN 32.7 pg (27.9-34.1); MEAN CELL HEMOGLOBIN CONCENTR. 34.9 g/dL (32.4-36.7); MEAN CELL VOLUME 93.8 fL (81.5-99.8); MEAN PLATELET VOLUME 8.7 fL (8.7-11.7); PLATELET CLUMPS FLAG 0 (0-99); PLATELET COUNT 392 10^3/uL (150-400); RED BLOOD CELL COUNT 3.36 10^6/uL (4.40-6.38)
[2016-12-19 05:39] LABS: INR 1.49 (0.83-1.16)
[2016-12-19 05:52] LABS: ANION GAP 11 mEq/L (8-16); CALCIUM 8.9 mg/dL (8.5-10.4); CARBON DIOXIDE 22 mEq/l (22-31); CHLORIDE 104 mEq/L (97-110); CREATININE 0.8 mg/dL (0.7-1.3); GLOMERULAR FILTRATION RATE > 60; GLUCOSE 117 mg/dL (70-100); POTASSIUM 4.7 mEq/L (3.5-5.2); SODIUM 137 mEq/L (134-144)
[2016-12-19] MEDS: ACETAMINOPHEN 500 MG TAB PO SCH ×2 (07:13→13:26)
--- NOTE | 2016-12-19 07:14 | NEUSURGPN ---
Assessment/Plan: 61 y/o male s/p L1-S1 PSF with L3 wedge osteotomy readmitted with SOB and anemia and right psoas/quad weakness. POD1 Exploration of prior hardware L2/3 redo decompression, strength and pain improved post surgery -Continue DEISY bulb suction -Advance diet as tolerated -Optimize pain management -Appreciate medical management of patient -DVT prophx: TEDs, SCDs, okay to resume Lovenox and Coumadin tomorrow 24 hour post surgery -Please notify NS with any change in neuro/motor exam Subjective: right leg pain with some tingling but stronger this morning Objective: NAD A&Ox3 MAEx4 5/5 and equal in BUE and BLE, Dressing c/d/i DEISY serosanguineous - Physician Discussed Patient with : Dennis Neurosurgery Physical Exam - Vitals, I&O, Labs I and O 12/18/16 12/19/16 12/20/16 05:59 05:59 05:59 Intake Total 1208 700 Output Total 655 Balance 1208 45 Weight 98.3 kg 94.5 kg Intake: Oral (ml) 800 300 IV Intake (ml) 400 IV Infused (ml) 408 Ns 1,000 ml @ 75 mls/hr 408 IV CONT NATHALIE Rx#: [id number] Output: Urine (ml) 500 Toilet 500 Estimated Blood Loss (ml) 150 DEISY Drain Output (ml) 5 #1 5 Other: Intake Quantity Yes Sufficient Number of Voids Toilet 1 1 Number of Stools Toilet 1 Vital Signs Temp Pulse Resp BP Pulse Ox 36.9 C 72 14 115/56 L 95 12/19/16 04:16 12/19/16 04:16 12/19/16 04:16 12/19/16 04:16 12/19/16 04:16 Laboratory Results 12/19/16 04:16 12/19/16 04:16 ICD10 Worksheet Patient Problems: Problems Problem Status Onset Dizziness Acute Dyspnea Acute Fusion of spine of lumbar region Acute Rash Acute Shortness of breath Acute Anemia Acute Hypoxemia Acute
[2016-12-19 08:26] VITALS: BP 117/62; PULSE 70; RESP 16; O2SAT 96
[2016-12-19] MEDS: GABAPENTIN 100 MG CAP PO SCH (09:19)
[2016-12-19] MEDS: morphINE SR 15 MG TAB PO SCH (09:19)
[2016-12-19] MEDS: SENNOSIDES/DOCUSATE SODIUM TAB PO SCH (09:19)
[2016-12-19] MEDS: TAMSULOSIN HCL 0.4 MG CAP PO SCH (09:43)
--- NOTE | 2016-12-19 11:05 | HOSPPROG ---
Hospitalist Progress Note Assessment/Plan: R leg weakness/pain s/p lumbar reconstruction/fusion surgery - CT with graft material likely causing radiculopathy s/p resection recent DVT (2nd episode) - reverse AC as above - IVC filter in place anticoag to restart today, per nurosurgery reported hypoxia/dizziness at altitude - on RA here hx AVR, aortic graft d/t aneurysm, CABGx2 - consider statin constipation: daily scheduled miralax bph - flomax proph: AC to restart today Subjective: case discussed w trev shay, neurosurgery PA Objective: Vital Signs Temp Pulse Resp BP Pulse Ox 36.9 C 70 16 117/62 96 12/19/16 04:16 12/19/16 08:25 12/19/16 08:25 12/19/16 08:25 12/19/16 08:25 Laboratory Results 12/19/16 04:16 12/19/16 04:16 12/18/16 12/19/16 12/20/16 05:59 05:59 05:59 Intake Total 1208 700 Output Total 655 Balance 1208 45 PT 18.0 SEC (12.0-15.0) H 12/19/16 04:16 INR 1.49 (0.83-1.16) H 12/19/16 04:16 - Physical Exam Constitutional: no apparent distress, appears nourished Eyes: PERRL, anicteric sclera Ears, Nose, Mouth, Throat: moist mucous membranes, hearing normal Cardiovascular: regular rate and rhythym, no murmur, rub, or gallop Respiratory: no respiratory distress, no rales or rhonchi Gastrointestinal: normoactive bowel sounds, soft, non-tender abdomen Genitourinary: no bladder fullness, No vazquez in urethra Skin: warm Musculoskeletal: full muscle strength Neurologic: AAOx3 ICD10 Worksheet Patient Problems: Problems Problem Status Onset Dizziness Acute Dyspnea Acute Fusion of spine of lumbar region Acute Rash Acute Shortness of breath Acute Anemia Acute Hypoxemia Acute
--- NOTE | 2016-12-19 11:35 | PDIAF ---
- Medication Management Discharge Medications: Medications to Continue on Transfer Ferrous Sulfate [Ferrous Sulf 325 MG (*)] 325 mg PO HS 11/05/16 [Last Taken ] Tamsulosin HCl [Flomax 0.4 MG (*)] 0.4 mg PO DAILY #0 cap 12/10/16 [Last Taken 12/16/16] oxyCODONE IR [Oxycodone Ir (*)] 5 - 10 mg PO Q4HRS PRN tab 12/10/16 [Last Taken 12/16/16 22:00] Acetaminophen [Tylenol ES 500 mg (*)] 1,000 mg PO TID@0930,,12/13/16 [Last Taken 12/16/16 18:00] Bisacodyl [Dulcolax] 10 mg RC DAILY PRN 12/13/16 [Last Taken 12/12/16] Diazepam [Valium 5 MG (*)] 5 mg PO HS PRN 12/13/16 [Last Taken 12/12/16 21:00] Herbals/Supplements -Info Only 1 ea PO DAILY 12/13/16 [Last Taken 12/13/16] Methocarbamol [Robaxin 750 mg (*)] 750 mg PO Q6H PRN 12/13/16 [Last Taken 20:00] Sennosides/Docusate Sodium [Senna-S Tablet] 2 each PO DAILY PRN 12/13/16 [Last Taken 12/13/16 09:00] Sod Phos,M-B/Na Phos,Di-Ba [Fleet Enema] 266 ml RC PRN PRN 12/13/16 [Last Taken 12/12/16] morphINE SR [Ms Contin/Oramorph 15 mg (*)] 15 - 30 mg PO BID 12/13/16 [Last Taken 12/16/16 20:00] Magnesium Hydroxide [Milk of Magnesia] 30 ml PO DAILY PRN 12/17/16 [Last Taken Unknown] Enoxaparin [Lovenox 100 MG (*)] 100 mg SQ 1000,2200 #14 syr 12/19/16 [Last Taken Unknown] Gabapentin [Neurontin 100 MG (*)] 200 mg PO TID cap 12/19/16 [Last Taken Unknown] Sennosides/Docusate Sodium [Senokot-S] 1 - 2 tab PO BID tab 12/19/16 [Last Taken Unknown] Warfarin Sodium 7.5 mg PO DAILY 30 Days tablet 12/19/16 [Last Taken Unknown] Discharge Medications: Refer to the Discharge Home Medication list for PRN reason. - Orders Services needed: Registered Nurse, Physical Therapy, Occupational Therapy Diet Recommendation: no restrictions on diet Diet Texture: Regular Texture Diet Wound Care Instructions: Call Dr. Rodriguez office on Wednesday with drain output. Continue aggressive bowel protocol, including Miralax. Follow up in clinic in 2 -3 weeks for an incision check. Start Lovenox and Coumadin tonight. Okay to stop Lovenox when INR is therapeutic - Labs/Radiology PT/INR Date: 12/21/16 (Please check M/W/F) - Follow Up Care Current Providers and Referrals: Lázaro Garcia DO [Primary Care Provider] - As per Instructions
--- NOTE | 2016-12-19 14:20 | ASMTCMCOM ---
CM Note CM Note Notes: Pt medically stable for d/c to [facility] who set up wc van transport. Orders sent in [employer]. Date Signed: 12/19/2016 02:20 PM Electronically Signed By:CONSUELO Cortez
--- NOTE | 2016-12-19 14:21 | ASDISCHSUM ---
Discharge Information Plan Status:SNF Medically Cleared to Leave: Discharge Date:12/19/2016 02:19 PM D/C Disposition:Snf Facility ADT D/C Disposition:Home, Routine, Self-Care Projected Discharge Date:12/19/2016 11:00 AM Transportation at D/C:Wheelchair Van Discharge Delay Reason: Follow-Up Date:12/19/2016 11:00 AM Discharge Slot: Final Diagnosis: Placement Information Referral Type:*Intermediate/SNF Referral ID:[id number] Provider Name:[facility] Address 1:[address] Address 2: City:[place] Selection [place]: State:[place] Patient Contact Information Contact Name:SHANTEL Relationship: Address:[address] City:[place] Alternate Phone: State/Zip Code:[place] [address] Email: Financial Information Financial Class:HMO and PPO Plans Primary Plan Desc:[facility] Primary Plan Number:[id number] Secondary Plan Desc: Secondary Plan Number: Assessment Information [facility] CM Progress Note CM Note CM Note Notes: Spoke w/pt and (via phone) re; dc poc. Pt not functioning at home post op, likely will need SNF, referral faxed to [facility] w/f. Date Signed: 12/17/2016 01:56 PM Electronically Signed By:Amy Crane RN [facility] CM Progress Note CM Note CM Note Notes: D/w , have sx today, may be able to dc tomorrow. Notified Christal at [facility], states ins auth came through, also notified [facility] w/f. Date Signed: 12/18/2016 02:16 PM Electronically Signed By:Amy Crane RN [facility] CM Progress Note CM Note CM Note Notes: Pt medically stable for d/c to [facility] who set up wc van transport. Orders sent in [employer]. Date Signed: 12/19/2016 02:20 PM Electronically Signed By:CONSUELO Cortez Intervention Information Intervention Type:*Incorrect Registration Date of Service:12/17/2016 08:29 AM Patient Type:Observation Staff Member:MARCELLUS Franklin, Zena Hours: Discipline: Severity: Comment:
--- NOTE | 2016-12-21 12:08 | POSTANESTH ---
Post Anesthetic Evaluation Cardiovascular Status: Normal, Stable Respiratory Status: Normal, Stable Level of Consciousness/Mental Status: Other, See Comment Pain Control: Adequate, Prn Tx Ordered Nausea/Vomiting Control: Adequate, Prn Tx Ordered Complications Possibly Related to Anesthesia: None Noted (Discharge to SNF. No anesthesia complications noted)
== END 2016-12-19 14:19 | disposition home or self-care (01) | DRG 516 ==
LOC: OBSVTOIN 22:21 → F3E 22:55 → F3N 12-18 16:55
PROVIDERS: ADMIT Family Medicine; ATTEND Family Medicine
DX: T84.328A Displacement of other bone devices, implants and grafts, initial encounter (principal); F11.20 Opioid dependence, uncomplicated; R09.02 Hypoxemia; R62.7 Adult failure to thrive; D64.9 Anemia, unspecified; G89.29 Other chronic pain; Z98.1 Arthrodesis status; R21 Rash and other nonspecific skin eruption; I25.10 Atherosclerotic heart disease of native coronary artery without angina pectoris; N40.0 Benign prostatic hyperplasia without lower urinary tract symptoms; Z79.01 Long term (current) use of anticoagulants; Z86.711 Personal history of pulmonary embolism; Z86.718 Personal history of other venous thrombosis and embolism
CPT/HCPCS: 96374; 97116-GP; 97161-GP; 97166-GO; 97535-GO; J0171; J0690; J1100; J1200; J2250; J2405; J2704; J3010; J3430; P9016; P9017

== ENCOUNTER → 2016-12-22 | Outpatient (CLI) | payer OTHER | LOC: FIMAGING 14:07 | PROVIDERS: ATTEND Neurological Surgery | DX: M54.5 Low back pain (principal); R20.0 Anesthesia of skin; Z98.1 Arthrodesis status ==

== ENCOUNTER 2017-01-25 11:33 | Day surgery (SDC) | payer OTHER ==
[2017-01-25] MEDS ORDERED: FLUMAZENIL 0.5 MG/5 ML MDV IVP PRN (12:01)
[2017-01-25] MEDS ORDERED: fentaNYL 100 MCG/2 ML INJ IVP PRN (12:01)
[2017-01-25] MEDS ORDERED: MIDAZOLAM 2 MG/2 ML VIAL IVP PRN (12:01)
[2017-01-25] MEDS ORDERED: NALOXONE HCL 0.4 MG/ML INJ IVP PRN (12:01)
[2017-01-25] MEDS ORDERED: NS 1,000 ML IV SCH (12:15)
[2017-01-25 12:46] VITALS: PULSE 61; RESP 16
[2017-01-25 13:03] LABS: INR 2.31 (0.83-1.16); PROTIME(PATIENT) 25.6 SEC (12.0-15.0)
[2017-01-25] MEDS ORDERED: MIDAZOLAM 2 MG/2 ML VIAL ONE (13:15)
[2017-01-25] MEDS ORDERED: NALOXONE HCL 0.4 MG/ML INJ ONE (13:15)
[2017-01-25] MEDS ORDERED: FLUMAZENIL 0.5 MG/5 ML MDV IVP ONE (13:15)
[2017-01-25] MEDS ORDERED: fentaNYL 100 MCG/2 ML INJ ONE (13:15)
--- NOTE | 2017-01-25 14:30 | PDGENHP ---
History & Physical Chief Complaint: DVT, now on anticoagulation History of Present Illness: 61 yo M h/o DVT who underwent back surgery on 12/03, IVC filter placement on 12/04 and filter replacement on 12/08 2/ tilting, pt currently on anticoagulation and filter removal is requested Pertinent Past, Social, Family History: No contributory Relevant Physical Exam: 1+ ankle edema bilaterally which is chronic per pt Cardiorespiratory Assessment: RRR, normal resp effort
--- NOTE | 2017-01-25 14:40 | PDPROPOC ---
Sedation Plan of Care Sedation Plan of Care: vital signs stable, mental status noted, patient educated of risks, benefits, alternatives, patient can tolerate sedation ASA Classification: ASA 3 Planned drugs: fentanyl, midazolam Mallampati Score: Class 1 Mallampati Reference Image: Patient passed 3-3-2 rule?: Yes
[2017-01-25] MEDS ORDERED: IOPAMIDOL (ISOVUE-300) 100 ML BTL ONE (15:33)
--- NOTE | 2017-01-25 15:34 | PDRADPN ---
Radiology Procedure Note Date of Procedure: 01/25/17 Radiologist: Antonio Medina Anesthesia: IV Sedation Pre-op Diagnosis: DVT Post-op Diagnosis: Same Indication: DVT s/p IVC filter, filter removal requested Procedure: Inferior vena cavogram, IVC filter removal and post venography Finding(s): See dictated report Inf/Abcess present in the surg proc area at time of surgery?: No EBL: Minimal (Less than 20 mL) Complications: No immediate
[2017-01-25] MEDS ORDERED: OXYCODONE/APAP 5/325 TAB PO PRN (15:37)
[2017-01-25] MEDS ORDERED: ONDANSETRON 4 MG/2 ML VIAL IVP PRN (15:37)
[2017-01-25] MEDS ORDERED: GABAPENTIN 100 MG CAP PO SCH (16:00)
[2017-01-25 17:59] VITALS: BP 106/67; TEMP 98.6; O2SAT 95
[2017-01-25] MEDS ORDERED: FERROUS SULFATE 325 MG TAB PO SCH (21:00)
[2017-01-26] MEDS ORDERED: WARFARIN SODIUM 7.5 MG TAB PO SCH (09:00)
== END 2017-01-25 17:50 | disposition home or self-care (01) ==
LOC: FIMAGING 11:33
PROVIDERS: ATTEND Family Medicine
PROC: 06PY3DZ Removal of Intraluminal Device from Lower Vein, Percutaneous Approach (ICD-10-PCS; principal; 2017-01-25 15:39)
DX: Z45.2 Encounter for adjustment and management of vascular access device (principal); I82.411 Acute embolism and thrombosis of right femoral vein; Z79.01 Long term (current) use of anticoagulants
CPT/HCPCS: 37193; 75825; 99152; 99153; C1769; C1773; C1892; J1644; J2250; J2310; J3010; Q9967

== ENCOUNTER → 2017-02-24 | Outpatient (CLI) | payer OTHER | LOC: FIMAGING 10:23 | PROVIDERS: ATTEND Physician Assistant Surgical | DX: Z98.1 Arthrodesis status (principal) ==

== ENCOUNTER → 2017-04-29 | Outpatient (CLI) | payer OTHER | LOC: FIMAGING 11:35 | PROVIDERS: ATTEND Physician Assistant Surgical | DX: Z98.1 Arthrodesis status (principal) ==